=== PATIENT | female | born 1935 | race Caucasian/White ===

== ENCOUNTER 2016-06-07 16:17 | Emergency (ER) | payer MEDICARE, OTHER, SELFPAY ==
[2016-06-07 16:28] VITALS: O2SAT 97
--- NOTE | 2016-06-07 17:16 | ERPHSYRPT ---
- History of Present Illness Time Seen by Provider: 06/07/16 17:07 Source: patient Exam Limitations: no limitations Patient Subjective Stated Complaint: rt hand swelling Triage Nursing Assessment: rt hand swelling for 2 days. fingers swollen with no bruising. radial pulse present. denies injury. limited rom due to swelling. Physician History: Patient complains of pain and swelling in her right hand for 2 days. She denies any injury. Past medical history includes high blood pressure and arthritis Occurred: days ago (2 days ago) Method of Injury: unknown Quality: constant Severity of Pain-Max: moderate Severity of Pain-Current: mild Extremities Pain Location: hand: right, 2nd finger: right, 3rd finger: right, 4th finger: right Modifying Factors: Improves With: nothing Associated Symptoms: none Allergies/Adverse Reactions: No Known Drug Allergies Allergy (Verified 06/07/16 16:28) Home Medications: Citalopram Hydrobromide 20 mg* [ceLEXa 20 MG] 20 mg PO DAILY 04/13/15 [ History] Rosuvastatin Calcium [Crestor] 10 mg PO DAILY 04/13/15 [History] Hx Tetanus, Diphtheria Vaccination/Date Given: Yes Hx Influenza Vaccination/Date Given: Yes Hx Pneumococcal Vaccination/Date Given: Yes Immunizations Up to Date: Yes - Review of Systems Constitutional: No Fever, No Chills Eyes: No Symptoms Ears, Nose, & Throat: No Symptoms Respiratory: No Cough, No Dyspnea Cardiac: No Chest Pain, No Edema, No Syncope Abdominal/Gastrointestinal: No Abdominal Pain, No Nausea, No Vomiting, No Diarrhea Genitourinary Symptoms: No Dysuria Musculoskeletal: Other (pain and right hands especially right second third and fourth fingers) Skin: No Rash Neurological: No Dizziness, No Focal Weakness, No Sensory Changes Psychological: No Symptoms Endocrine: No Symptoms All Other Systems: Reviewed and Negative - Past Medical History Pertinent Past Medical History: Yes Cardiac History: Hypertension - Past Surgical History Past Surgical History: Yes Gastrointestinal: Cholecystectomy - Social History Smoking Status: Never smoker Exposure to second hand smoke: Yes Drug Use: none Patient Lives Alone: No - Nursing Vital Signs Nursing Vital Signs: Initial Vital Signs Temperature 97.8 F Temperature Source Oral Pulse Rate 77 Respiratory Rate 18 Blood Pressure [] 157/80 Pain Intensity 8 - Physical Exam General Appearance: alert Eyes, Ears, Nose, Throat Exam: moist mucous membranes Neck Exam: non-tender, supple Cardiovascular/Respiratory Exam: chest non-tender, normal breath sounds, regular rate/rhythm, no respiratory distress Abdominal Exam: non-tender, No guarding Back Exam: normal inspection, No vertebral tenderness Shoulder Exam: normal inspection, non-tender, no evidence of injury, normal ROM Elbow/Forearm Exam: normal inspection, non-tender, no evidence of injury, normal ROM Wrist Exam: normal inspection, non-tender, no evidence of injury Hand Exam: No normal inspection (edema and tenderness overlying the right second third and fourth proximal interphalangeal joints decreased range of motion to the right second third and fourth finger secondary to pain good capillary refill all fingers sensation intact fingers) Neuro/Tendon Exam: normal sensation, normal motor functions Mental Status Exam: alert, oriented x 3, cooperative Skin Exam: normal color, warm, dry SpO2 Interpretation: normal (97%) SpO2: 97 Oxygen Delivery: Room Air - Course Nursing assessment & vital signs reviewed: Yes - Radiology Exams Right Hand X-ray Interpretation: Interpreted by me, No Fracture, Other (arthritis in pip joints) Ordered Tests: Active Orders 24 hr Category Date Time Status HAND (MINIMUM 3 VIEWS) Stat Exams 06/07/16 17:10 Taken BMP Stat Lab 06/07/16 17:22 Completed CBC W DIFF Stat Lab 06/07/16 17:22 Completed SED RATE [Erythrocyte Sedimentation Rate] Stat Lab 06/07/16 17:24 Completed Uric Acid Stat Lab 06/07/16 17:25 Completed Lab/Rad Data: Laboratory Result Diagrams 06/07/16 17:22 06/07/16 17:22 Laboratory Results 06/07/16 06/07/16 06/07/16 Range/Units 17:25 17:24 17:22 WBC (4.0-10.5) K/mm3 RBC (4.1-5.4) M/mm3 Hgb (12.0-16.0) gm/dl Hct (35-47) % MCV (78-100) fl MCH (26-32) pg MCHC (32-36) g/dl RDW (11.5-14.0) % Plt Count (150-450) K/mm3 MPV (6-9.5) fl Gran % (36.0-66.0) % Lymphocytes % (24.0-44.0) % Monocytes % (0.0-12.0) % Eosinophils % (0.00-5.0) % Basophils % (0.0-0.4) % Basophils # (0-0.4) ESR 17 (0-20) mm/hr Sodium 142 (136-145) mEq/L Potassium 3.7 (3.5-5.1) mEq/L Chloride 104 (98-107) mEq/L Carbon Dioxide 26.3 (21-32) mEq/L Anion Gap 15.6 H (5-15) MEQ/L BUN 12 (9-20) mg/dL Creatinine 1.27 (0.55-1.30) mg/dl Estimated GFR 43 ML/MIN Glucose 109 (70-110) MG/DL Uric Acid 4.6 (2.6-6.0) mg/dL Calcium 8.5 (8.5-10.1) mg/dL 06/07/16 Range/Units 17:22 WBC 5.0 (4.0-10.5) K/mm3 RBC 3.93 L (4.1-5.4) M/mm3 Hgb 12.4 (12.0-16.0) gm/dl Hct 38.4 (35-47) % MCV 97.7 (78-100) fl MCH 31.5 (26-32) pg MCHC 32.3 (32-36) g/dl RDW 15.2 H (11.5-14.0) % Plt Count 119 L (150-450) K/mm3 MPV 10.1 H (6-9.5) fl Gran % 66.6 H (36.0-66.0) % Lymphocytes % 20.9 L (24.0-44.0) % Monocytes % 11.5 (0.0-12.0) % Eosinophils % 0.8 (0.00-5.0) % Basophils % 0.2 (0.0-0.4) % Basophils # 0.01 (0-0.4) ESR (0-20) mm/hr Sodium (136-145) mEq/L Potassium (3.5-5.1) mEq/L Chloride (98-107) mEq/L Carbon Dioxide (21-32) mEq/L Anion Gap (5-15) MEQ/L BUN (9-20) mg/dL Creatinine (0.55-1.30) mg/dl Estimated GFR ML/MIN Glucose (70-110) MG/DL Uric Acid (2.6-6.0) mg/dL Calcium (8.5-10.1) mg/dL - Progress Progress: improved Progress Note: 06/07/16 18:08 Patient with swelling at all the proximal interphalangeal joints of her fingers. Patient's fingers are not hot. Patient with normal white count and sedimentation rate. Uric acid level was normal. Will write for [place] for pain. Have patient rest and elevate her right hand with cold packs. - Departure Time of Disposition: 18:09 Departure Disposition: Home Clinical Impression: Right hand pain, Arthritis Condition: Fair Critical Care Time: No Additional Instructions: Return home. Cold packs to right hand 24-48 hours elevate your right hand 24-48 hours. [place] 5/325 #15 one orally every 4-6 hours as needed for pain. Follow-up with Dr. Fletcher. Return for acute distress or for severe symptoms. Prescriptions: Hydrocodone/Acetaminophen [[place] 5-325 Tablet] 1 tab PO Q4-6HPRN PRN #15 tablet PRN Reason: Pain
[2016-06-07 17:30] LABS: BASOPHIL % 0.2 % (0.0-0.4); Eosinophil % 0.8 % (0.00-5.0); Granulocytes % 66.6 % (36.0-66.0); Lymphocytes % 20.9 % (24.0-44.0); Mean Cell Volume 97.7 fl (78-100); Mean Platelet Volume 10.1 fl (6-9.5); Monocytes % 11.5 % (0.0-12.0); Platelet Count 119 K/mm3 (150-450); Red Blood Count 3.93 M/mm3 (4.1-5.4); Red Cell Distribution Width 15.2 % (11.5-14.0)
[2016-06-07 17:33] LABS: Mean Corpuscular Hemoglobin 31.5 pg (26-32)
[2016-06-07 17:40] LABS: ANION GAP 15.6 MEQ/L (5-15); Carbon Dioxide 26.3 mEq/L (21-32); Potassium 3.7 mEq/L (3.5-5.1)
[2016-06-07 18:19] VITALS: BP 128/70; PULSE 70
--- NOTE | 2016-06-08 08:29 | XRAY ---
Indication: Pain and swelling. No known injury. Comparison: None 3 views of the right hand demonstrates mild osteopenia, advanced degenerative changes of all IP joints with soft tissue swelling, mild degenerative changes of all MCP joints, moderate degenerative changes at the base of the first metacarpal, radiocarpal degenerative joint space narrowing, and distal forearm vascular calcifications. No other bony, articular, or soft tissue abnormalities.
== END 2016-06-07 18:18 | disposition home or self-care (01) ==
LOC: ED 16:17
DX: M79.641 Pain in right hand (principal); M19.041 Primary osteoarthritis, right hand; I10 Essential (primary) hypertension
CPT/HCPCS: 36415; 73130; 80048; 84550; 85025; 85652; 99284

== ENCOUNTER 2017-12-08 04:33 | Emergency (ER) | payer MEDICARE, OTHER ==
[2017-12-08] MEDS ORDERED: ANTIVERT 25 MG PO ONE (04:58)
[2017-12-08] MEDS ORDERED: Sodium Chloride 0.9% 1000 ML 1,000 ML IV SCH (05:00)
--- NOTE | 2017-12-08 05:15 | ERPHSYRPT ---
- History of Present Illness Time Seen by Provider: 12/08/17 05:00 Source: patient Exam Limitations: clinical condition Patient Subjective Stated Complaint: PT STATES SHE WAS SITTING IN CHAIR AND GOT UP AND STARTED HAVING DIFFICULTY AMBULATING D/T DIZZINESS; PT STATES S/S HAVE BEEN ONGOING FOR APPROX 1 HOUR; ALSO STATES SHE HAS SIMILAR S/S INTERMITTENTLY BUT HAS NOT DISCUSSED WITH HER FAMILY PHYS; PT ALSO CO HEADACHE AND BACK PAIN. Triage Nursing Assessment: PT A&O X3; SKIN P, W, & D; NO OBVIOUS DISTRESS NOTED ; ASSISTED TO COT PER ER STAFF AND EMS; FAMILY AT BEDSIDE. Physician History: PATIENT WITH A HISTORY OF HYPERTENSION COMPLAINS OF DIZZINESS ASSOCIATED WITH FRONTAL HEADACHE OVER THE PAST 2 HOURS. DENIES BLURRED VISION, SLURRED SPEECH. EXACERBATION UPON MOTION OF HEAD. DENIES NUMBNESS, TINGLING IN EXTEMITIES Timing/Duration: today Severity: moderate Baseline/Normal Cognition: alert oriented x 3 Current Cognition: alert oriented x 3 Baseline Gait: walks w/o assistance Associated Symptoms: headache Allergies/Adverse Reactions: No Known Drug Allergies Allergy (Verified 12/08/17 04:54) Home Medications: Citalopram Hydrobromide 20 mg* [ceLEXa 20 MG] 20 mg PO DAILY 04/13/15 [ History] Rosuvastatin Calcium [Crestor] 10 mg PO DAILY 04/13/15 [History] Hx Tetanus, Diphtheria Vaccination/Date Given: Yes Hx Influenza Vaccination/Date Given: Yes Hx Pneumococcal Vaccination/Date Given: Yes Immunizations Up to Date: Yes - Review of Systems Constitutional: No Fever, No Chills Eyes: No Symptoms Ears, Nose, & Throat: No Symptoms Respiratory: No Cough, No Dyspnea Cardiac: No Symptoms, No Chest Pain, No Edema, No Syncope Abdominal/Gastrointestinal: No Symptoms, No Abdominal Pain, No Nausea, No Vomiting, No Diarrhea Genitourinary Symptoms: No Symptoms, No Dysuria Musculoskeletal: No Back Pain, No Neck Pain Skin: No Rash Neurological: Headache, Vertigo, No Dizziness, No Focal Weakness, No Sensory Changes Psychological: No Symptoms Endocrine: No Symptoms All Other Systems: Reviewed and Negative - Past Medical History Pertinent Past Medical History: Yes Cardiac History: Hypertension - Past Surgical History Past Surgical History: Yes Gastrointestinal: Cholecystectomy - Social History Smoking Status: Never smoker Exposure to second hand smoke: No Drug Use: none Patient Lives Alone: No - Female History Hx Last Menstrual Period: POSTMENOPAUSAL - Nursing Vital Signs Nursing Vital Signs: Initial Vital Signs Temperature 97.4 F 12/08/17 04:44 Pulse Rate 74 12/08/17 04:44 Respiratory Rate 18 12/08/17 04:44 Blood Pressure 148/68 12/08/17 04:44 O2 Sat by Pulse Oximetry 96 12/08/17 04:44 Pain Scale Pain Intensity 8 - [place] Coma Scale Best Eye Response ([place]): (4) open spontaneously Best Verbal Response ([place]): (5) oriented Best Motor Response ([place]): (6) obeys commands [place] Total: 15 - Physical Exam General Appearance: no apparent distress Eye Exam: bilateral eye: normal inspection, PERRL, EOMI Ears, Nose, Throat Exam: normal ENT inspection, other (NO PERCUSSION TENDERNESS OVER SINUSES) Neck Exam: normal inspection, non-tender Respiratory: normal breath sounds Cardiovascular: regular rate/rhythm Gastrointestinal: soft, normal bowel sounds Back Exam: normal inspection Extremity Exam: normal inspection Peripheral Pulses: carotid (R): 1+, carotid (L): 1+, femoral (R): 1+, femoral (L ): 1+, dorsalis-pedis (R): 1+ 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, 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 Exam: normal hearing, normal speech, PERRL Coordination/Gait: normal finger to nose, normal gait DTR: bicep (R): 1+, bicep (L): 1+, tricep (R): 1+, tricep (L): 1+, knee (R): 1+ , knee (L): 1+, ankle (R): 1+, ankle (L): 1+ Skin Exam: normal color SpO2 Interpretation: normal SpO2: 96 Oxygen Delivery: Room Air - Course EKG Interpreted by Me: RATE, NORMAL AXIS - CT Exams Head CT Interpretation: No/Intracranial Hemorrhag (THERE IS OPACIFICATION OF RIGHT MASTOID AIR CELLS) Ordered Tests: Active Orders 24 hr Category Date Time Status 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 Care 12/08/17 04:59 Active EKG-ER Only STAT Care 12/08/17 04:58 Active Orthostatic Vital Signs STAT Care 12/08/17 04:58 Active HEAD WITHOUT CONTRAST [CT] Stat Exams 12/08/17 05:05 Taken BMP Stat Lab 12/08/17 05:47 Completed CBC W DIFF Stat Lab 12/08/17 05:47 Completed CULTURE,URINE Stat Lab 12/08/17 05:30 Received MAGNESIUM Stat Lab 12/08/17 05:47 Completed UA W/ MICROSCOPIC Stat Lab 12/08/17 05:30 Completed Medication Summary Generic Name Dose Route Start Last Admin Trade Name Martha PRN Reason Stop Dose Admin Sodium Chloride 1,000 mls @ 200 mls/hr 12/08/17 05:00 12/08/17 05:45 Sodium Chloride 0.9% 1000 Ml IV 01/07/18 04:59 200 mls/hr .Q5H SREE Administration Discontinued Medications Generic Name Dose Route Start Last Admin Trade Name Freq PRN Reason Stop Dose Admin Ceftriaxone Sodium/Dextrose 1 g in 50 mls @ 100 mls/hr 12/08/17 05:55 06:06 Rocephin 1 Gm-D5w 50 Ml Bag IV 12/08/17 06:24 100 ml/hr STAT STA 100 mls/hr Administration Ceftriaxone Sodium/Dextrose Confirm 12/08/17 06:02 Rocephin 1 Gm-D5w 50 Ml Bag Administered 12/08/17 06:03 Dose 1 g in 50 mls @ ud IV .STK-MED ONE Meclizine HCl 25 mg 12/08/17 04:58 12/08/17 05:45 Antivert 25 Mg PO 12/08/17 04:59 25 mg STAT ONE Administration Meclizine HCl Confirm 12/08/17 05:43 Antivert 25 Mg Administered 12/08/17 05:44 Dose 25 mg .ROUTE .STK-MED ONE Lab/Rad Data: Laboratory Result Diagrams 12/08/17 05:47 12/08/17 05:47 Laboratory Results 12/08/17 12/08/17 12/08/17 Range/Units 05:47 05:47 05:47 WBC 5.0 (4.0-10.5) K/mm3 RBC 3.70 L (4.1-5.4) M/mm3 Hgb 12.5 (12.0-16.0) gm/dl Hct 37.8 (35-47) % MCV 102.2 H (78-100) fl MCH 33.7 H (26-32) pg MCHC 33.1 (32-36) g/dl RDW 14.8 H (11.5-14.0) % Plt Count 163 (150-450) K/mm3 MPV 9.3 (6-9.5) fl Gran % 67.1 H (36.0-66.0) % Eos # (Auto) 0.08 (0-0.5) Absolute Lymphs (auto) 1.08 (1.0-4.6) Absolute Monos (auto) 0.45 (0.0-1.3) Lymphocytes % 21.8 L (24.0-44.0) % Monocytes % 9.1 (0.0-12.0) % Eosinophils % 1.6 (0.00-5.0) % Basophils % 0.4 (0.0-0.4) % Absolute Granulocytes 3.33 (1.4-6.9) Basophils # 0.02 (0-0.4) Sodium 138 (137-145) mmol/L Potassium 4.0 (3.5-5.1) mmol/L Chloride 104 (98-107) mmol/L Carbon Dioxide 26 (22-30) mmol/L Anion Gap 11.0 (5-15) MEQ/L BUN 13 (7-17) mg/dL Creatinine 0.92 (0.52-1.04) mg/dL Estimated GFR > 60.0 ML/MIN Glucose 123 H (74-106) mg/dL Calcium 8.8 (8.4-10.2) mg/dL Magnesium 1.9 (1.6-2.3) mg/dL Ur Collection Type Urine Color (YELLOW) Urine Appearance (CLEAR) Urine pH (5-6) Ur Specific [place] (1.005-1.025) Urine Protein (Negative) Urine Ketones (NEGATIVE) Urine Blood (0-5) Ubaldo/ul Urine Nitrite (NEGATIVE) Urine Bilirubin (NEGATIVE) Urine Urobilinogen (0-1) mg/dL Ur Leukocyte Esterase (NEGATIVE) Urine Microscopic RBC (0-2) /HPF Urine Microscopic WBC (0-5) /HPF Ur Epithelial Cells (FEW) /HPF Urine Bacteria (NEGATIVE) /HPF Urine Mucus (NEGATIVE) /HPF Urine Culture Reflexed (NO) Urine Glucose (NEGATIVE) mg/dL 12/08/17 Range/Units 05:30 WBC (4.0-10.5) K/mm3 RBC (4.1-5.4) M/mm3 Hgb (12.0-16.0) gm/dl Hct (35-47) % MCV (78-100) fl MCH (26-32) pg MCHC (32-36) g/dl RDW (11.5-14.0) % Plt Count (150-450) K/mm3 MPV (6-9.5) fl Gran % (36.0-66.0) % Eos # (Auto) (0-0.5) Absolute Lymphs (auto) (1.0-4.6) Absolute Monos (auto) (0.0-1.3) Lymphocytes % (24.0-44.0) % Monocytes % (0.0-12.0) % Eosinophils % (0.00-5.0) % Basophils % (0.0-0.4) % Absolute Granulocytes (1.4-6.9) Basophils # (0-0.4) Sodium (137-145) mmol/L Potassium (3.5-5.1) mmol/L Chloride (98-107) mmol/L Carbon Dioxide (22-30) mmol/L Anion Gap (5-15) MEQ/L BUN (7-17) mg/dL Creatinine (0.52-1.04) mg/dL Estimated GFR ML/MIN Glucose (74-106) mg/dL Calcium (8.4-10.2) mg/dL Magnesium (1.6-2.3) mg/dL Ur Collection Type CLEAN CATCH Urine Color YELLOW (YELLOW) Urine Appearance CLEAR (CLEAR) Urine pH 8.0 (5-6) Ur Specific [place] 1.005 (1.005-1.025) Urine Protein NEGATIVE (Negative) Urine Ketones NEGATIVE (NEGATIVE) Urine Blood 50 (0-5) Ubaldo/ul Urine Nitrite NEGATIVE (NEGATIVE) Urine Bilirubin NEGATIVE (NEGATIVE) Urine Urobilinogen NORMAL (0-1) mg/dL Ur Leukocyte Esterase 1+ (NEGATIVE) Urine Microscopic RBC 2-5 (0-2) /HPF Urine Microscopic WBC 5-10 (0-5) /HPF Ur Epithelial Cells FEW (FEW) /HPF Urine Bacteria FEW (NEGATIVE) /HPF Urine Mucus SLIGHT (NEGATIVE) /HPF Urine Culture Reflexed YES (NO) Urine Glucose NEGATIVE (NEGATIVE) mg/dL - Progress Progress: pain not gone completely Progress Note: 12/08/17 05:56 IV NORNAL SALINE 200ML/HR, TYLENOL 650MG, AND ANTIVERT 25MG ORALLY, ROCEPHIN 1GM IVPB FOR UTI Counseled pt/family regarding: lab results, diagnosis, need for follow-up - Departure Time of Disposition: 07:00 Departure Disposition: Home Clinical Impression: ACUTE LABYRINTHITIS, URINARY TRACT INFECTION Condition: Stable Critical Care Time: No Referrals: KATHERINE SANDERS [Primary Care Provider] - Additional Instructions: BEGIN ANTIVERT 25MG EVERY 8 HOURS FOR DIZZINESS NEEDED, AND ANTIBIOTIC LEVAQUIN 500MG DAILY FOR 10 DAYS. DRINK PLENTY OF FLUIDS. Prescriptions: Meclizine HCl 25 mg [Antivert 25 mg] 25 mg PO Q8H PRN PRN #20 tablet PRN Reason: Dizziness Levofloxacin [Levaquin] 500 mg PO DAILY #10 tablet
[2017-12-08 05:37] LABS: Appearance CLEAR (CLEAR); Bilirubin NEGATIVE (NEGATIVE); Blood 50 Ery/ul (0-5); Glucose NEGATIVE (NEGATIVE); Ketones NEGATIVE (NEGATIVE); Leukocyte Esterase 1+ (NEGATIVE); Mucus SLIGHT /HPF (NEGATIVE); Nitrite NEGATIVE (NEGATIVE); Protein,Urine Dip NEGATIVE (Negative); Specific Gravity 1.005 (1.005-1.025); Urobilinogen NORMAL mg/dL (0-1)
[2017-12-08 05:38] LABS: Bacteria FEW /HPF (NEGATIVE); Epithelial Cells FEW /HPF (FEW)
[2017-12-08] MEDS ORDERED: Sodium Chloride 0.9% 1000 ML 1,000 ML ONE (05:43)
[2017-12-08] MEDS ORDERED: ANTIVERT 25 MG ONE (05:43)
[2017-12-08 05:49] LABS: BASOPHIL % 0.4 % (0.0-0.4); Basophil (Absolute #) 0.02 (0-0.4); Eosinophil % 1.6 % (0.00-5.0); Eosinophil (Absolute #) 0.08 (0-0.5); Granulocyte Absolute (ANC) 3.33 (1.4-6.9); Granulocytes % 67.1 % (36.0-66.0); Hematocrit 37.8 % (35-47); Hemoglobin 12.5 gm/dl (12.0-16.0); Lymphocyte (Absolute #) 1.08 (1.0-4.6); Lymphocytes % 21.8 % (24.0-44.0); Mean Cell Volume 102.2 fl (78-100); Mean Corpuscular Hgb Concent. 33.1 g/dl (32-36); Mean Platelet Volume 9.3 fl (6-9.5); Monocyte (Absolute #) 0.45 (0.0-1.3); Monocytes % 9.1 % (0.0-12.0); Platelet Count 163 K/mm3 (150-450); Red Cell Distribution Width 14.8 % (11.5-14.0)
[2017-12-08 05:50] LABS: Mean Corpuscular Hemoglobin 33.7 pg (26-32)
[2017-12-08] MEDS ORDERED: ROCEPHIN 1 Gm-D5w 50 ml Bag** 1 G/50 ML IVPB IV STA (05:55)
[2017-12-08] MEDS ORDERED: ROCEPHIN 1 Gm-D5w 50 ml Bag** 1 G/50 ML IVPB IV ONE (06:02)
[2017-12-08 06:16] LABS: BLOOD UREA NITROGEN 13 mg/dL (7-17); CHLORIDE 104 mmol/L (98-107); Calcium 8.8 mg/dL (8.4-10.2); Carbon Dioxide 26 mmol/L (22-30); Creatinine 1 0.92 mg/dL (0.52-1.04); Glucose 123 mg/dL (74-106); SODIUM 138 mmol/L (137-145)
[2017-12-08 06:53] VITALS: BP 160/85; PULSE 73; O2SAT 98
--- NOTE | 2017-12-08 09:01 | XRAY ---
Indication: Headache and dizziness. No known injury. Multiple contiguous axial images obtained through the head without contrast. Comparison: None Age-appropriate global atrophy and minimal periventricular degenerative micro-ischemia bilaterally. No acute intracranial hemorrhage, abnormal extra-axial fluid collection, or mass effect. Fourth ventricle is midline without hydrocephalus. Bony calvarium intact. 1.1 cm right maxillary sinus polyp/retention cyst. Remaining visualized paranasal sinuses are clear. Complete opacification of the right mastoid air cells. Impression: 1. Nonacute senile brain. 2. Incidental right maxillary sinus polyp/retention cyst. 3. Complete opacification of the right mastoid air cells presumed inflammatory. Comment: Preliminary interpretation was made by [facility]. No critical discrepancy. CT DI 70.21
== END 2017-12-08 07:27 | disposition home or self-care (01) ==
LOC: ED 04:33
DX: H83.09 Labyrinthitis, unspecified ear (principal); N39.0 Urinary tract infection, site not specified; R51 Headache; Z79.899 Other long term (current) drug therapy
CPT/HCPCS: 36415; 70450; 80048; 81001; 83735; 85025; 87086; 93005; 93041; 96360; 96365; 99284; J0696; A9270-GY

== ENCOUNTER 2017-12-11 11:50 | Inpatient (IN) | payer MEDICARE, OTHER ==
--- NOTE | 2017-12-11 13:09 | XRAY ---
Exam: Two-view chest from 12/11/2017. Comparison: Two-view chest from 04/05/2016. Indication: Shortness of breath, weakness, "just don't feel good". Findings: Upright PA and lateral chest films are submitted for evaluation. The transverse heart size is borderline enlarged with a prominent left ventricular contour representing no change. A calcified, mildly tortuous descending thoracic aorta is seen. The kristyn and mediastinal structures appear unremarkable. Some minimal vertically oriented linear scarring or atelectasis is seen at the peripheral right upper lung field and lateral right lung base. I also note minimal obliquely oriented linear scarring or plate atelectasis within the peripheral left lower lung field. The remainder of the lung cenra appears clear. No air space infiltrates, vascular congestion, pneumothorax, or pleural fluid is seen. Minimal biapical pleural thickening is seen. There is mild hyperinflation of the lungs. The bones are significantly demineralized. There is evidence of prior kyphoplasty at T7 and T8. There is minimal anterior wedging of T9 representing no change. There is a moderate compression fracture deformity of T6 which is new from 01/03/2017. Correlate clinically. There is moderate to marked dorsal kyphosis centered at T8-T9. Mild lower thoracic vertebral endplate spurs are seen. A mild dextroscoliosis is again seen within the upper lumbar spine. Impression: 1. Borderline cardiomegaly with left ventricular prominence without evidence of CHF or pulmonary edema. 2. Hyperinflated lungs consistent with an element of COPD. 3. No air space infiltrates are seen to suggest pneumonia. I do note some minimal scattered bilateral linear scarring or atelectasis, as discussed above. 4. Compared to 01/03/2017, there is a new moderate compression fracture deformity of T6. Otherwise, the remainder of the skeletal findings appears unchanged, as discussed above.
[2017-12-11] MEDS ORDERED: Zovirax INJ IV SCH (13:15)
[2017-12-11 13:28] LABS: BASOPHIL % 0.5 % (0.0-0.4); Basophil (Absolute #) 0.02 (0-0.4); Eosinophil % 0.3 % (0.00-5.0); Eosinophil (Absolute #) 0.01 (0-0.5); Granulocyte Absolute (ANC) 2.55 (1.4-6.9); Granulocytes % 68.9 % (36.0-66.0); Hematocrit 44.6 % (35-47); Hemoglobin 15.1 gm/dl (12.0-16.0); Lymphocytes % 16.2 % (24.0-44.0); Mean Cell Volume 99.3 fl (78-100); Mean Corpuscular Hemoglobin 33.6 pg (26-32); Mean Corpuscular Hgb Concent. 33.9 g/dl (32-36); Monocyte (Absolute #) 0.52 (0.0-1.3); Monocytes % 14.1 % (0.0-12.0); Platelet Count 122 K/mm3 (150-450); Red Blood Count 4.49 M/mm3 (4.1-5.4); Red Cell Distribution Width 14.6 % (11.5-14.0); White Blood Count 3.7 K/mm3 (4.0-10.5)
[2017-12-11 14:31] LABS: ANION GAP 15.2 MEQ/L (5-15); BILIRUBIN,TOTAL 0.5 mg/dL (0.2-1.3); Calcium 9.5 mg/dL (8.4-10.2); Creatinine 1 1.35 mg/dL (0.52-1.04); Total Protein 7.3 g/dL (6.3-8.2)
[2017-12-11] MEDS: Sodium Chloride 0.9% 1000 ML 1,000 ML IV SCH (15:09)
[2017-12-11] MEDS: SODIUM CHLORIDE 0.9% IV SCH ×2 (15:10→22:41)
[2017-12-11] MEDS: ZOVIRAX IV SCH ×2 (15:10→22:41)
[2017-12-11] MEDS: ROCEPHIN 1 Gm-D5w 50 ml Bag** 1 G/50 ML IVPB IV SCH (16:10)
[2017-12-11] MEDS: ANTIVERT 25 MG PO SCH ×2 (16:11→22:41)
[2017-12-11] MEDS ORDERED: NON-FORMULARY ITEM (Donepezil Hcl [Donepezil Hcl] 5 MG) PO SCH (22:00)
[2017-12-11] MEDS: Aricept 10 MG PO SCH (22:40)
[2017-12-11] MEDS: ZOCOR 20MG PO SCH (22:41)
[2017-12-11 23:52] LABS: Appearance CLOUDY (CLEAR); Bilirubin NEGATIVE (NEGATIVE); Blood MODERATE Ery/ul (0-5); Glucose NEGATIVE (NEGATIVE); Ketones TRACE (NEGATIVE); Leukocyte Esterase SMALL (NEGATIVE); Nitrite NEGATIVE (NEGATIVE); Protein,Urine Dip 30 (Negative); Specific Gravity 1.025 (1.005-1.025); Urobilinogen NEGATIVE mg/dL (0-1)
[2017-12-12] MEDS: Sodium Chloride 0.9% 1000 ML 1,000 ML IV SCH ×2 (03:53→16:48)
[2017-12-12] MEDS: TYLENOL 325 MG PO PRN ×2 (08:34→21:24)
[2017-12-12] MEDS: ZOLOFT 50 MG TABLET PO SCH (09:37)
[2017-12-12] MEDS: hydroDIURIL 25 MG PO SCH (09:38)
[2017-12-12] MEDS: ROCEPHIN 1 Gm-D5w 50 ml Bag** 1 G/50 ML IVPB IV SCH (09:38)
[2017-12-12] MEDS: NORVASC 5 MG PO SCH (09:38)
[2017-12-12] MEDS: ANTIVERT 25 MG PO SCH ×3 (09:38→21:24)
[2017-12-12] MEDS ORDERED: HYDROCHLOROTHIAZIDE PO SCH (10:00)
[2017-12-12] MEDS ORDERED: DIOVAN 80 MG PO SCH (10:00)
[2017-12-12] MEDS ORDERED: VALSARTAN PO SCH (10:00)
[2017-12-12] MEDS ORDERED: NON-FORMULARY ITEM (Sertraline Hcl [Sertraline Hcl] 25 MG) PO SCH (10:00)
[2017-12-12] MEDS ORDERED: NON-FORMULARY ITEM (Rosuvastatin Calcium [Crestor] 10 MG) PO SCH (10:00)
[2017-12-12] MEDS: ZOVIRAX IV SCH ×2 (10:48→21:24)
[2017-12-12] MEDS: SODIUM CHLORIDE 0.9% IV SCH ×2 (10:48→21:24)
--- NOTE | 2017-12-12 11:51 | PCM.NOTE ---
Date and Time: 12/12/17 1150 Subjective Assessment: doing ok - Review of Systems Constitutional: No Fever, No Chills Eyes: No Symptoms Ears, Nose, & Throat: No Symptoms Respiratory: No Cough, No Short Of Breath Cardiac: No Chest Pain, No Edema, No Syncope Abdominal/Gastrointestinal: No Abdominal Pain, No Nausea, No Vomiting, No Diarrhea Genitourinary Symptoms: No Dysuria Musculoskeletal: No Back Pain, No Neck Pain Skin: No Rash Neurological: No Dizziness, No Focal Weakness, No Sensory Changes Psychological: No Symptoms Endocrine: No Symptoms Hematologic/Lymphatic: No Symptoms Immunological/Allergic: No Symptoms Objective Exam General Appearance: no apparent distress, alert Neurologic Exam: alert, oriented x 3, cooperative, normal mood/affect, nml cerebellar function, sensation nml, No motor deficits Skin Exam: normal color, warm, dry Eye Exam: PERRL, EOMI, eyes nml inspection Ears, Nose, Throat Exam: normal ENT inspection, pharynx normal, moist mucous membranes Neck Exam: normal inspection, non-tender, supple, full range of motion Respiratory Exam: normal breath sounds, lungs clear, No respiratory distress Cardiovascular Exam: regular rate/rhythm, normal heart sounds Gastrointestinal/Abdomen Exam: soft, No tenderness, No mass Extremity Exam: normal inspection, normal range of motion Back Exam: normal inspection, normal range of motion, No CVA tenderness, No vertebral tenderness Pelvic Exam: deferred Rectal Exam: deferred OBJECTIVE DATA Vital Signs: Vital Signs - 24 hr Temp Pulse Resp BP Pulse Ox 12/12/17 11:05 98 F 82 20 125/64 96 12/12/17 07:10 98.1 F 90 20 113/65 96 12/12/17 04:00 98.0 F 71 16 135/61 93 L 12/11/17 23:41 98.0 F 79 20 144/68 95 12/11/17 20:00 99.0 F 79 18 130/60 95 12/11/17 16:50 98.7 F 82 16 143/82 94 L 12/11/17 16:00 98.7 F 82 16 143/82 94 L Pain Assessment - Last Documented Pain Intensity 8 Pain Scale Used 0-10 Pain Scale Intake and Output: Intake & Output 12/09/17 12/10/17 12/11/17 12/12/17 11:59 11:59 11:59 11:59 Intake Total 1804 Output Total 500 Balance 1304 Weight 55.7 kg Lab Results: Lab Results-Last 24 Hours 12/11/17 12/11/17 12/11/17 Range/Units 13:15 13:15 23:30 WBC 3.7 L (4.0-10.5) K/mm3 RBC 4.49 (4.1-5.4) M/mm3 Hgb 15.1 (12.0-16.0) gm/dl Hct 44.6 (35-47) % MCV 99.3 (78-100) fl MCH 33.6 H (26-32) pg MCHC 33.9 (32-36) g/dl RDW 14.6 H (11.5-14.0) % Plt Count 122 L (150-450) K/mm3 MPV 10.0 H (6-9.5) fl Gran % 68.9 H (36.0-66.0) % Eos # (Auto) 0.01 (0-0.5) Absolute Lymphs (auto) 0.60 L (1.0-4.6) Absolute Monos (auto) 0.52 (0.0-1.3) Lymphocytes % 16.2 L (24.0-44.0) % Monocytes % 14.1 H (0.0-12.0) % Eosinophils % 0.3 (0.00-5.0) % Basophils % 0.5 (0.0-0.4) % Absolute Granulocytes 2.55 (1.4-6.9) Basophils # 0.02 (0-0.4) Sodium 137 (137-145) mmol/L Potassium 4.0 (3.5-5.1) mmol/L Chloride 102 (98-107) mmol/L Carbon Dioxide 24 (22-30) mmol/L Anion Gap 15.2 H (5-15) MEQ/L BUN 31 H (7-17) mg/dL Creatinine 1.35 H (0.52-1.04) mg/dL Estimated GFR 40.1 ML/MIN Glucose 115 H (74-106) mg/dL Calcium 9.5 (8.4-10.2) mg/dL Total Bilirubin 0.50 (0.2-1.3) mg/dL AST 32 (14-36) U/L ALT 16 (0-35) U/L Alkaline Phosphatase 64 (38-126) U/L NT-Pro-B Natriuret Pep 8610 H (0-1800) pg/mL Serum Total Protein 7.3 (6.3-8.2) g/dL Albumin 4.0 (3.5-5.0) g/dL Urine Color YELLOW (YELLOW) Urine Appearance CLOUDY (CLEAR) Urine pH 5.0 (5-6) Ur Specific [place] 1.025 (1.005-1.025) Urine Protein 30 (Negative) Urine Ketones TRACE (NEGATIVE) Urine Blood MODERATE (0-5) Ubaldo/ul Urine Nitrite NEGATIVE (NEGATIVE) Urine Bilirubin NEGATIVE (NEGATIVE) Urine Urobilinogen NEGATIVE (0-1) mg/dL Ur Leukocyte Esterase SMALL (NEGATIVE) Urine WBC (Auto) 6-10 (0-5) /HPF Urine RBC (Auto) 6-10 (0-2) /HPF U Hyaline Cast (Auto) 3-5 (0-2) /LPF U Epithel Cells (Auto) MODERATE (FEW) /HPF Urine Bacteria (Auto) RARE (NEGATIVE) /HPF Unidentified Crystals 2-5 (NEGATIVE) /HPF Other Casts (Auto) NEGATIVE (NEGATIVE) /LPF Urine Mucus (Auto) SLIGHT (NEGATIVE) /HPF Urine Glucose NEGATIVE (NEGATIVE) mg/dL Radiology Exams: Radiology Procedures Category Date Time Status CHEST 2 VIEWS (PA AND LAT) Stat Exams 12/11/17 12:50 Completed Assessment/Plan (1) UTI (urinary tract infection) Current Visit: Yes Status: Acute Onset Date: ~12/11/17 Qualifiers: Urinary tract infection type: acute pyelonephritis Qualified Code(s): N10 - Acute pyelonephritis Code(s): N39.0 - URINARY TRACT INFECTION, SITE NOT SPECIFIED (2) Failure of outpatient treatment Current Visit: Yes Status: Acute Onset Date: ~12/11/17 Code(s): Z78.9 - OTHER SPECIFIED HEALTH STATUS (3) Weakness Current Visit: Yes Status: Acute Onset Date: ~12/11/17 Code(s): R53.1 - WEAKNESS (4) Shingles (herpes zoster) polyneuropathy Current Visit: Yes Status: Acute Code(s): B02.23 - POSTHERPETIC POLYNEUROPATHY
[2017-12-12] MEDS: Lomotil PO PRN (16:48)
[2017-12-12] MEDS: ZOCOR 20MG PO SCH (21:24)
[2017-12-12] MEDS: Aricept 10 MG PO SCH (21:24)
[2017-12-13] MEDS: Sodium Chloride 0.9% 1000 ML 1,000 ML IV SCH ×2 (05:05→16:31)
--- NOTE | 2017-12-13 06:41 | PCM.NOTE ---
Date and Time: 12/13/17 0640 Subjective Assessment: doing ok - Review of Systems Constitutional: No Fever, No Chills Eyes: No Symptoms Ears, Nose, & Throat: No Symptoms Respiratory: No Cough, No Short Of Breath Cardiac: No Chest Pain, No Edema, No Syncope Abdominal/Gastrointestinal: No Abdominal Pain, No Nausea, No Vomiting, No Diarrhea Genitourinary Symptoms: No Dysuria Musculoskeletal: No Back Pain, No Neck Pain Skin: Rash (on left lower back) Neurological: No Dizziness, No Focal Weakness, No Sensory Changes Psychological: No Symptoms Endocrine: No Symptoms Hematologic/Lymphatic: No Symptoms Immunological/Allergic: No Symptoms Objective Exam General Appearance: no apparent distress, alert Neurologic Exam: alert, oriented x 3, cooperative, normal mood/affect, nml cerebellar function, sensation nml, No motor deficits Skin Exam: normal color, warm, dry Eye Exam: PERRL, EOMI, eyes nml inspection Ears, Nose, Throat Exam: normal ENT inspection, pharynx normal, moist mucous membranes Neck Exam: normal inspection, non-tender, supple, full range of motion Respiratory Exam: normal breath sounds, lungs clear, No respiratory distress Cardiovascular Exam: regular rate/rhythm, normal heart sounds Gastrointestinal/Abdomen Exam: soft, No tenderness, No mass Extremity Exam: normal inspection, normal range of motion Back Exam: normal inspection, normal range of motion, rash, No CVA tenderness, No vertebral tenderness Pelvic Exam: deferred Rectal Exam: deferred OBJECTIVE DATA Vital Signs: Vital Signs - 24 hr Temp Pulse Resp BP Pulse Ox 12/13/17 04:00 98.5 F 99 H 18 161/83 94 L 12/12/17 23:15 97.9 F 64 19 131/67 95 12/12/17 19:21 98.3 F 72 16 126/62 96 12/12/17 16:39 98 F 68 20 118/57 96 12/12/17 11:05 98 F 82 20 125/64 96 12/12/17 07:10 98.1 F 90 20 113/65 96 Pain Assessment - Last Documented Pain Intensity 8 Pain Scale Used 0-10 Pain Scale Intake and Output: Intake & Output 12/10/17 12/11/17 12/12/17 12/13/17 11:59 11:59 11:59 11:59 Intake Total 1804 3350 Output Total 500 1100 Balance 1304 2250 Weight 55.7 kg Radiology Exams: Radiology Procedures Category Date Time Status CHEST 2 VIEWS (PA AND LAT) Stat Exams 12/11/17 12:50 Completed Assessment/Plan (1) Shingles (herpes zoster) polyneuropathy Current Visit: Yes Status: Acute Code(s): B02.23 - POSTHERPETIC POLYNEUROPATHY (2) UTI (urinary tract infection) Current Visit: Yes Status: Acute Onset Date: ~12/11/17 Qualifiers: Urinary tract infection type: acute pyelonephritis Qualified Code(s): N10 - Acute pyelonephritis Code(s): N39.0 - URINARY TRACT INFECTION, SITE NOT SPECIFIED (3) Failure of outpatient treatment Current Visit: Yes Status: Acute Onset Date: ~12/11/17 Code(s): Z78.9 - OTHER SPECIFIED HEALTH STATUS (4) Weakness Current Visit: Yes Status: Resolved Onset Date: ~12/11/17 Code(s): R53.1 - WEAKNESS
[2017-12-13] MEDS: ZOLOFT 50 MG TABLET PO SCH (09:11)
[2017-12-13] MEDS: ANTIVERT 25 MG PO SCH ×3 (09:11→21:42)
[2017-12-13] MEDS: DIOVAN 80 MG PO SCH (09:12)
[2017-12-13] MEDS: hydroDIURIL 25 MG PO SCH (09:12)
[2017-12-13] MEDS: NORVASC 5 MG PO SCH (09:13)
[2017-12-13] MEDS: SODIUM CHLORIDE 0.9% IV SCH ×2 (09:17→21:42)
[2017-12-13] MEDS: ZOVIRAX IV SCH ×2 (09:17→21:42)
[2017-12-13] MEDS ORDERED: Levofloxacin 500 MG Tablet PO SCH (10:00)
[2017-12-13] MEDS: ROCEPHIN 1 Gm-D5w 50 ml Bag** 1 G/50 ML IVPB IV SCH (10:54)
[2017-12-13] MEDS: TYLENOL 325 MG PO PRN (12:41)
[2017-12-13] MEDS: Lomotil PO PRN (12:41)
[2017-12-13] MEDS: PERCOCET TABLET 5/325MG PO PRN ×2 (15:49→21:43)
[2017-12-13] MEDS: ZOCOR 20MG PO SCH (21:42)
[2017-12-13] MEDS: Aricept 10 MG PO SCH (21:43)
[2017-12-14] MEDS: Sodium Chloride 0.9% 1000 ML 1,000 ML IV SCH ×2 (05:39→18:14)
[2017-12-14] MEDS: SODIUM CHLORIDE 0.9% IV SCH ×2 (09:35→21:44)
[2017-12-14] MEDS: ZOVIRAX IV SCH ×2 (09:35→21:44)
[2017-12-14] MEDS: hydroDIURIL 25 MG PO SCH (09:35)
[2017-12-14] MEDS: NORVASC 5 MG PO SCH (09:36)
[2017-12-14] MEDS: ZOLOFT 50 MG TABLET PO SCH (09:36)
[2017-12-14] MEDS: DIOVAN 80 MG PO SCH (09:36)
[2017-12-14] MEDS: ROCEPHIN 1 Gm-D5w 50 ml Bag** 1 G/50 ML IVPB IV SCH (09:37)
[2017-12-14] MEDS: PERCOCET TABLET 5/325MG PO PRN ×3 (09:37→21:45)
[2017-12-14] MEDS: ANTIVERT 25 MG PO SCH ×3 (09:37→21:45)
[2017-12-14] MEDS: Aricept 10 MG PO SCH (21:44)
[2017-12-14] MEDS: ZOCOR 20MG PO SCH (21:44)
[2017-12-15] MEDS: Sodium Chloride 0.9% 1000 ML 1,000 ML IV SCH (07:12)
[2017-12-15 07:31] VITALS: PULSE 69; O2SAT 96
[2017-12-15] MEDS: ANTIVERT 25 MG PO SCH (08:57)
[2017-12-15] MEDS: hydroDIURIL 25 MG PO SCH (08:57)
[2017-12-15] MEDS: PERCOCET TABLET 5/325MG PO PRN (08:57)
[2017-12-15] MEDS: DIOVAN 80 MG PO SCH (08:57)
[2017-12-15] MEDS: ROCEPHIN 1 Gm-D5w 50 ml Bag** 1 G/50 ML IVPB IV SCH (08:57)
[2017-12-15] MEDS: ZOLOFT 50 MG TABLET PO SCH (08:58)
[2017-12-15] MEDS: NORVASC 5 MG PO SCH (08:59)
--- NOTE | 2017-12-15 09:09 | PROG NOTE ---
DATE: 12/14/2017 Chart is reviewed and events noted. PHYSICAL EXAMINATION: At the time of this evaluation the patient is alert, awake, comfortable. She complains of fatigue, complains of discomfort at site of rash, appears mildly confused (baseline per nursing staff). Denies increased shortness of breath. Denies any other complaints. VITAL SIGNS: Blood pressure 117/58, heart rate 51, respiratory rate 18, temperature 98.2F. Oxygen saturation 96%. HEENT: Pallor is present. No icterus is noted. NECK: No JVD is present. CVS: S1, S2 present. RESPIRATORY: Breath sounds are diminished, clear to auscultation. ABDOMEN: Soft, nontender. NEURO: She is alert, awake, mildly confused, somewhat hard of hearing, answers simple questions. EXTREMITIES: No edema on bilateral lower extremities. SKIN: Examination revealed diffuse area of rash on left lower back/left flank area. LABORATORY DATA AND TESTS: There were no new labs today. Medications were reviewed. ASSESSMENT: An 82 year old woman with impression: 1) Generalized weakness. 2) Herpes Zoster (left lower back/left flank area). 3) Urinary tract infection. 4) Hypertension. 5) Dementia. 6) History of depression. 7) History of renal insufficiency. PLAN: Continue IV antibiotics, continue antiviral, continue isolation. Likely discharge to group home Discussed with patient regarding current plan of management and also patient's (he is very hard of hearing) was present at the time of this evaluation, tried to explain to him regarding the patient available work up results and plan of management. The patient insists that she does not wish to go to group home. I advised the patient to discuss plan of care with Dr. Syed when he is back tomorrow. The patient was in agreement with the plan of management as noted. The plan was discussed with the patient's nurse, , performed at the time of this evaluation.
[2017-12-15] MEDS: ZOVIRAX IV SCH (10:09)
[2017-12-15] MEDS: SODIUM CHLORIDE 0.9% IV SCH (10:09)
[2017-12-15 10:54] VITALS: BP 148/66
--- NOTE | 2017-12-15 13:17 | PCM.DS ---
Discharge Summary Date of Admission: 12/11/17 12:02 Admitting Physician: RUBEN RICHARD Primary Care Provider: KATHERINE SANDERS Allergies Allergies No Known Drug Allergies Allergy (Verified 12/08/17 04:54) Hospital Summary - Hospital Course Hospital Course: Last Vital Signs Temp 98.2 F 12/15/17 10:54 Pulse 69 12/15/17 10:54 Resp 18 12/15/17 10:54 BP 148/66 12/15/17 10:54 Pulse Ox 96 12/15/17 10:54 Allergies No Known Drug Allergies Allergy (Verified 12/08/17 04:54) Active Medications Acetaminophen (Tylenol 325 Mg) 325 mg PO Q4H PRN PRN PRN Reason: PAIN, FEVER, HEADACHE Stop: 01/10/18 12:19 Last Admin: 12/13/17 12:41 Dose: 325 mg Amlodipine Besylate (Norvasc 5 Mg) 5 mg PO DAILY SREE Stop: 01/11/18 09:59 Last Admin: 12/15/17 08:59 Dose: 5 mg Diphenoxylate HCl/Atropine (Lomotil) 1 tablet PO QID PRN PRN PRN Reason: DIARRHEA Stop: 01/11/18 16:05 Last Admin: 12/13/17 12:41 Dose: 1 tablet Donepezil HCl (Aricept 10 Mg) 5 mg PO HS SREE Stop: 01/10/18 21:59 Last Admin: 12/14/17 21:44 Dose: 5 mg Hydrochlorothiazide (Hydrodiuril 25 Mg) 12.5 mg PO DAILY SREE Stop: 01/11/18 09:59 Last Admin: 12/15/17 08:57 Dose: 12.5 mg Ceftriaxone Sodium/Dextrose (Rocephin 1 Gm-D5w 50 Ml Bag) 1 g in 50 mls @ 100 mls/hr IV Q24H10 SREE Stop: 01/10/18 12:59 Last Admin: 12/15/17 08:57 Dose: 100 mls/hr Sodium Chloride (Sodium Chloride 0.9% 1000 Ml) 1,000 mls @ 100 mls/hr IV .Q10H SREE Stop: 01/10/18 12:29 Last Admin: 12/15/17 07:12 Dose: 100 mls/hr Acyclovir Sodium 400 mg/ (Sodium Chloride) 100 mls @ 100 mls/hr IV Q12HT SREE Stop: 01/10/18 13:59 Last Admin: 12/15/17 10:09 Dose: 100 mls/hr Meclizine HCl (Antivert 25 Mg) 25 mg PO TID SREE Stop: 01/10/18 14:59 Last Admin: 12/15/17 08:57 Dose: 25 mg Oxycodone/Acetaminophen (Percocet Tablet 5/325mg) 1 tab PO QIDP PRN PRN Reason: PAIN Stop: 12/17/17 13:29 Last Admin: 12/15/17 08:57 Dose: 1 tab Sertraline HCl (Zoloft 50 Mg Tablet) 25 mg PO DAILY [facility] Stop: 01/11/18 09:59 Last Admin: 12/15/17 08:58 Dose: 25 mg Simvastatin (Zocor 20mg) 20 mg PO HS [facility] Stop: 01/10/18 21:59 Last Admin: 12/14/17 21:44 Dose: 20 mg Valsartan (Diovan 80 Mg) 160 mg PO DAILY SREE Stop: 01/11/18 09:59 Last Admin: 12/15/17 08:57 Dose: 160 mg Intake & Output 12/15/17 12/16/17 11:59 11:59 Intake Total 2861 Output Total 1875 Balance 986 - Vitals & Intake/Output Vital Signs: Vital Signs Temperature 98.2 F 12/15/17 10:54 Pulse Rate 69 12/15/17 10:54 Respiratory Rate 18 12/15/17 10:54 Blood Pressure 148/66 12/15/17 10:54 O2 Sat by Pulse Oximetry 96 12/15/17 10:54 Intake & Output: Intake & Output 12/13/17 12/14/17 12/15/17 12/16/17 11:59 11:59 11:59 11:59 Intake Total 3350 3303 2861 Output Total 3923 306 9185 Balance 2250 2853 986 - Lab Result Diagrams: 12/11/17 13:15 12/11/17 13:15 Micro Results-Entire Visit: Microbiology 12/11/17 Unknown Urine Culture - Final Urine, Void <10K NORMAL SKIN DARELL PROBABLE SKIN CONTAMINANT - Procedures and Test Procedures and Tests throughout Hospitalization: Therapy Orders & Screens 12/11/17 12:20 EKG STAT Comment: Discharge Exam General Appearance: no apparent distress, alert Neurologic Exam: alert, oriented x 3, cooperative, normal mood/affect, nml cerebellar function, sensation nml, No motor deficits Skin Exam: normal color, warm, dry Eye Exam: PERRL, EOMI, eyes nml inspection Ears, Nose, Throat Exam: normal ENT inspection, pharynx normal, moist mucous membranes Neck Exam: normal inspection, non-tender, supple, full range of motion Respiratory Exam: normal breath sounds, lungs clear, No respiratory distress Cardiovascular Exam: regular rate/rhythm, normal heart sounds Gastrointestinal/Abdomen Exam: soft, No tenderness, No mass Extremity Exam: normal inspection, normal range of motion Back Exam: normal inspection, normal range of motion, No CVA tenderness, No vertebral tenderness Pelvic Exam: deferred Rectal Exam: deferred Final Diagnosis/Problem List - Final Discharge Diagnosis/Problem (1) Shingles (herpes zoster) polyneuropathy Current Visit: Yes Status: Acute (2) UTI (urinary tract infection) Current Visit: Yes Status: Resolved Onset Date: ~12/11/17 (3) Failure of outpatient treatment Current Visit: Yes Status: Acute Onset Date: ~12/11/17 (4) Weakness Current Visit: Yes Status: Resolved Onset Date: ~12/11/17 - Discharge Discharge Date: 12/15/17 Disposition: Home, Self-Care Condition: Stable Prescriptions: New Oxycodone/APAP 5 mg/325 mg [Percocet Tablet 5/325Mg] 1 tab PO QIDP PRN # 30 tablet MDD 4 PRN Reason: Pain Acyclovir 800 mg [Zovirax 800 mg] 800 mg PO TID 10 Days #30 tablet Continue Rosuvastatin Calcium [Crestor] 10 mg PO DAILY Amlodipine Besylate 5 mg [Norvasc 5 mg] 5 mg PO DAILY Valsartan/Hydrochlorothiazide [Diovan Hct 160-12.5 mg Tab] 1 each PO DAILY Sertraline HCl 25 mg PO DAILY Meclizine HCl 25 mg [Antivert 25 mg] 25 mg PO TID Donepezil HCl 5 mg PO HS Discontinued Levofloxacin [Levaquin] 500 mg PO DAILY Follow up with: RUBEN RICHARD MD [ACTIVE STAFF] - 1 Week KATHERINE SANDERS [Primary Care Provider] - 1 Week
== END 2017-12-15 14:06 | DRG 596 ==
LOC: MED SURG 12:02 → OBSVTOIN 12:02 → MED SURG 13:21
PROVIDERS: ADMIT General Practice; ATTEND General Practice
DX: B02.9 Zoster without complications (principal); N39.0 Urinary tract infection, site not specified; G62.9 Polyneuropathy, unspecified; Z78.9 Other specified health status; R53.1 Weakness; I12.9 Hypertensive chronic kidney disease with stage 1 through stage 4 chronic kidney disease, or unspecified chronic kidney disease; N18.9 Chronic kidney disease, unspecified; F03.90 Unspecified dementia, unspecified severity, without behavioral disturbance, psychotic disturbance, mood disturbance, and anxiety; F32.9 Major depressive disorder, single episode, unspecified; T14.8XXA Other injury of unspecified body region, initial encounter; W57.XXXA Bitten or stung by nonvenomous insect and other nonvenomous arthropods, initial encounter
CPT/HCPCS: 36415; 71046; 80053; 81001; 83880; 85025; 87086; 93005; J0133; J0696; A9270-GY

== ENCOUNTER 2018-09-25 14:27 | Inpatient (IN) | payer MEDICARE, OTHER ==
[2018-09-25] MEDS ORDERED: Sodium Chloride 0.9% 500 ML 500 ML IV ONE (14:50)
--- NOTE | 2018-09-25 14:57 | ERPHSYRPT ---
- History of Present Illness Time Seen by Provider: 09/25/18 14:45 Source: patient, family, EMS Exam Limitations: no limitations Patient Subjective Stated Complaint: removed patient from car in ambulance bay , she fainted at home nad woke up laying on her back. was taking her to dr office to get checked out but was unable to get her out of car so they had him bring her here Triage Nursing Assessment: patient has small scrape on back, skin warm dry and intact, pulses present bilateral radius, skin loose, patient is alert and orietnedx3, ambulates with assistance of two. Physician History: 83 y/o white female presents via ems for weakness and possible syncopal episode. pt denies head injury, denies pain of any kind. pt states she has not had an appetite for several months and just does not feel like eating or drinking. confirms pts story and he adds she only consumes 3 ensure a day. pt has h/o dementia. Witnessed: unwitnessed Timing/Duration: today Precipitating Factors: unknown Context: standing Loss of Consciousness: brief (seconds) Charcter of event(s): felt faint Allergies/Adverse Reactions: No Known Drug Allergies Allergy (Verified 01/14/18 09:22) Home Medications: Donepezil HCl 1 tab PO HS 12/11/17 [History] Sertraline HCl 1 tab PO HS 12/11/17 [History] Acetaminophen 325 mg [Tylenol 325 mg] 2 tab PO Q4H PRN PRN 01/14/18 [ History] Clonazepam 0.5 mg [Klonopin 0.5 MG] 0.5 mg PO TIDPRN PRN 01/14/18 [History ] Meclizine HCl 25 mg [Antivert 25 mg] 1 tab PO TID 01/14/18 [History] Oxycodone HCl/Acetaminophen [Percocet 5-325 mg Tablet] 1 tab PO Q6H PRN [History] Rosuvastatin Calcium [Crestor] 1 tab PO HS 01/14/18 [History] Hx Tetanus, Diphtheria Vaccination/Date Given: Yes Hx Influenza Vaccination/Date Given: Yes Hx Pneumococcal Vaccination/Date Given: Yes Immunizations Up to Date: Yes - Past Medical History Pertinent Past Medical History: Yes Neurological History: Dementia, Other ENT History: Cataracts Cardiac History: Hypertension Respiratory History: No Pertinent History Endocrine Medical History: No Pertinent History Musculoskeletal History: Arthritis GI Medical History: Gallbladder Disease History: No Pertinent History Psycho-Social History: Depression Female Reproductive Disorders: No Pertinent History Other Medical History: Pt very forgetful denies dementia but takes aricept. Pt and are poor historians. Pt here for Infusion. Lungs clear. Resp easy and unlabored. Heart tones regular. Abd soft and nontender. No swelling noted to ankles or feet. - Past Surgical History Past Surgical History: Yes Neuro Surgical History: No Pertinent History Cardiac: No Pertinent History Respiratory: No Pertinent History Gastrointestinal: Cholecystectomy Genitourinary: No Pertinent History Musculoskeletal: Other Female Surgical History: No Pertinent History Other Surgical History: Hx od Miley and lower back surgery. Pt is scheduled for cataract surgery on 02-01-2018 - Social History Smoking Status: Never smoker Exposure to second hand smoke: Yes ( smoking) Drug Use: none Patient Lives Alone: No - Review of Systems Constitutional: No Symptoms Eyes: No Symptoms Ears, Nose, & Throat: No Symptoms Respiratory: No Symptoms Cardiac: No Symptoms Abdominal/Gastrointestinal: No Symptoms Genitourinary Symptoms: No Symptoms Musculoskeletal: No Symptoms Skin: No Symptoms Neurological: Dizziness Psychological: No Symptoms Endocrine: No Symptoms Hematologic/Lymphatic: No Symptoms Immunological/Allergic: No Symptoms All Other Systems: Reviewed and Negative Physical Exam - Nursing Vital Signs Nursing Vital Signs: Initial Vital Signs Temperature 97.7 F 09/25/18 14:28 Pulse Rate 87 09/25/18 14:28 Respiratory Rate 18 09/25/18 14:28 Blood Pressure 94/52 09/25/18 14:28 O2 Sat by Pulse Oximetry 99 09/25/18 14:28 Pain Scale Pain Intensity 0 - [place] Coma Scale Best Eye Response ([place]aco): (4) open spontaneously Best Verbal Response (Inoc[place]): (5) oriented Best Motor Response ([place]): (6) obeys commands Inoc[place] Total: 15 - Physical Exam General Appearance: no apparent distress, alert, anxiety, cachetic Eye Exam: bilateral eye: normal inspection, PERRL, EOMI Ears, Nose, Throat Exam: normal ENT inspection, dry mucous membranes Neck Exam: normal inspection, non-tender, supple, full range of motion Respiratory: normal breath sounds, lungs clear, airway intact, No chest tenderness, No respiratory distress Cardiovascular: regular rate/rhythm, normal heart sounds, normal peripheral pulses Gastrointestinal: soft, normal bowel sounds, No tenderness Pelvic Exam: not done Rectal Exam: not done Back Exam: normal inspection, normal range of motion, No CVA tenderness, No vertebral tenderness Extremity Exam: normal inspection, normal range of motion, pelvis stable 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, oriented x 3, 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 Exam: normal hearing, normal speech, PERRL Coordination/Gait: normal finger to nose, normal gait, normal cerebellar function Skin Exam: normal color, warm, dry SpO2 Interpretation: normal SpO2: 99 O2 Delivery: Room Air - Course Nursing assessment & vital signs reviewed: Yes EKG Interpreted by Me: RATE (92), Sinus Rhythm, NORMAL AXIS, NORMAL INTERVALS, NORMAL QRS, Other (comparison ekg 12/12/18) Ordered Tests: Active Orders 24 hr Category Date Time Status Patrol Driver STAT Care 09/25/18 14:50 Active EKG-ER Only STAT Care 09/25/18 14:48 Active IV Insertion STAT Care 09/25/18 14:48 Active HEAD WITHOUT CONTRAST [CT] Stat Exams 09/25/18 14:49 Completed CBC W DIFF Stat Lab 09/25/18 14:55 Completed CMP Stat Lab 09/25/18 14:55 Completed CULTURE,URINE Stat Lab 09/25/18 Received UA W/RFX UR CULTURE Stat Lab 09/25/18 Completed Medication Summary Discontinued Medications Generic Name Dose Route Start Last Admin Trade Name Sidneyq PRN Reason Stop Dose Admin Sodium Chloride 500 mls @ 500 mls/hr 09/25/18 14:50 09/25/18 15:41 Sodium Chloride 0.9% 500 Ml IV 09/25/18 15:49 500 mls/hr .Q1H ONE Administration Sodium Chloride Confirm 09/25/18 15:36 Sodium Chloride 0.9% 1000 Ml Administered 09/25/18 15:37 Dose 1,000 mls @ ud .ROUTE .STK-MED ONE Lab/Rad Data: Laboratory Result Diagrams 09/25/18 14:55 09/25/18 14:55 Laboratory Results 09/25/18 09/25/18 09/25/18 Range/Units Unknown 14:55 14:55 WBC 7.1 (4.0-10.5) K/mm3 RBC 2.36 L (4.1-5.4) M/mm3 Hgb 8.0 L (12.0-16.0) gm/dl Hct 24.9 L (35-47) % MCV 105.5 H (78-100) fl MCH 33.8 H (26-32) pg MCHC 32.1 (32-36) g/dl RDW 12.4 (11.5-14.0) % Plt Count 145 L (150-450) K/mm3 MPV 11.0 H (6-9.5) fl Gran % 56.5 (36.0-66.0) % Eos # (Auto) 0.19 (0-0.5) Absolute Lymphs (auto) 2.07 (1.0-4.6) Absolute Monos (auto) 0.80 (0.0-1.3) Lymphocytes % 29.2 (24.0-44.0) % Monocytes % 11.3 (0.0-12.0) % Eosinophils % 2.7 (0.00-5.0) % Basophils % 0.3 (0.0-0.4) % Absolute Granulocytes 4.00 (1.4-6.9) Basophils # 0.02 (0-0.4) Sodium 143 (137-145) mmol/L Potassium 4.1 (3.5-5.1) mmol/L Chloride 107 (98-107) mmol/L Carbon Dioxide 23 (22-30) mmol/L Anion Gap 17.7 H (5-15) MEQ/L BUN 66 H (7-17) mg/dL Creatinine 2.44 H (0.52-1.04) mg/dL Estimated GFR 20.2 ML/MIN Glucose 101 (74-106) mg/dL Calcium 9.8 (8.4-10.2) mg/dL Total Bilirubin 0.30 (0.2-1.3) mg/dL AST 29 (14-36) U/L ALT 16 (0-35) U/L Alkaline Phosphatase 54 (38-126) U/L Serum Total Protein 7.8 (6.3-8.2) g/dL Albumin 4.3 (3.5-5.0) g/dL Urine Color YELLOW (YELLOW) Urine Appearance SLIGHTLY CLOUDY (CLEAR) Urine pH 7.0 (5-6) Ur Specific [place] 1.014 (1.005-1.025) Urine Protein NEGATIVE (Negative) Urine Ketones NEGATIVE (NEGATIVE) Urine Blood NEGATIVE (0-5) Ubaldo/ul Urine Nitrite NEGATIVE (NEGATIVE) Urine Bilirubin NEGATIVE (NEGATIVE) Urine Urobilinogen NEGATIVE (0-1) mg/dL Ur Leukocyte Esterase LARGE (NEGATIVE) Urine WBC (Auto) 26-50 (0-5) /HPF Urine RBC (Auto) 3-5 (0-2) /HPF U Hyaline Cast (Auto) 3-5 (0-2) /LPF U Epithel Cells (Auto) RARE (FEW) /HPF Urine Bacteria (Auto) FEW (NEGATIVE) /HPF U Non-Squamous Epi Cells RARE (FEW) /HPF Urine Mucus (Auto) SLIGHT (NEGATIVE) /HPF Urine Culture Reflexed YES (NO) Urine Glucose NEGATIVE (NEGATIVE) mg/dL - Progress Progress: improved, re-examined Progress Note: 09/25/18 16:54 ct head-no new or acute intracranial abnormalities. Counseled pt/family regarding: lab results, diagnosis, rad results - Departure Departure Disposition: Observation Clinical Impression: Weakness, Renal insufficiency, UTI (urinary tract infection), Anemia Condition: Fair Critical Care Time: No Referrals: KATHERINE SANDERS [ACTIVE STAFF] -
[2018-09-25 15:10] LABS: BASOPHIL % 0.3 % (0.0-0.4); Basophil (Absolute #) 0.02 (0-0.4); Eosinophil % 2.7 % (0.00-5.0); Eosinophil (Absolute #) 0.19 (0-0.5); Granulocytes % 56.5 % (36.0-66.0); Hematocrit 24.9 % (35-47); Lymphocyte (Absolute #) 2.07 (1.0-4.6); Lymphocytes % 29.2 % (24.0-44.0); Mean Cell Volume 105.5 fl (78-100); Mean Corpuscular Hgb Concent. 32.1 g/dl (32-36); Monocytes % 11.3 % (0.0-12.0); Platelet Count 145 K/mm3 (150-450); Red Blood Count 2.36 M/mm3 (4.1-5.4); Red Cell Distribution Width 12.4 % (11.5-14.0); White Blood Count 7.1 K/mm3 (4.0-10.5)
[2018-09-25 15:15] LABS: Mean Corpuscular Hemoglobin 33.8 pg (26-32)
[2018-09-25 15:23] LABS: ALBUMIN 4.3 g/dL (3.5-5.0); ANION GAP 17.7 MEQ/L (5-15); BILIRUBIN,TOTAL 0.3 mg/dL (0.2-1.3); Calcium 9.8 mg/dL (8.4-10.2); Creatinine 1 2.44 mg/dL (0.52-1.04); Potassium 4.1 mmol/L (3.5-5.1); Total Protein 7.8 g/dL (6.3-8.2)
[2018-09-25] MEDS ORDERED: Sodium Chloride 0.9% 1000 ML 1,000 ML ONE (15:36)
--- NOTE | 2018-09-25 16:00 | XRAY ---
Indication: Syncope. History stroke. Multiple contiguous axial images obtained through the head without contrast. Comparison: December 08, 2017. Images through the base of the brain slightly degraded by motion artifact even with repeat CT. Grossly stable age-appropriate global atrophy and minimal periventricular degenerative microvascular ischemia bilaterally. No acute intracranial hemorrhage, abnormal extra-axial fluid collection, or mass effect. Fourth ventricle is midline without hydrocephalus. Bony calvarium intact. 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 Remaining visualized paranasal sinuses are clear. Impression: Mild motion artifact. Grossly stable nonacute senile brain including stable right maxillary sinus polyp/retention cyst and complete opacification of the right mastoid air cells. No new or acute intracranial abnormalities. CTDI 68.32
[2018-09-25 16:41] LABS: Appearance SLIGHTLY CLOUDY (CLEAR); Bacteria FEW /HPF (NEGATIVE); Bilirubin NEGATIVE (NEGATIVE); Blood NEGATIVE Ery/ul (0-5); Epithelial Cells RARE /HPF (FEW); Glucose NEGATIVE (NEGATIVE); Ketones NEGATIVE (NEGATIVE); Leukocyte Esterase LARGE (NEGATIVE); Mucus SLIGHT /HPF (NEGATIVE); Nitrite NEGATIVE (NEGATIVE); Non-Squamous Epithelial Cells RARE /HPF (FEW); Protein,Urine Dip NEGATIVE (Negative); Specific Gravity 1.014 (1.005-1.025); Urobilinogen NEGATIVE mg/dL (0-1); WBC 26-50 /HPF (0-5)
[2018-09-25] MEDS ORDERED: ROCEPHIN 1 Gm-D5w 50 ml Bag** 1 G/50 ML IVPB IV STA (16:57)
[2018-09-25] MEDS ORDERED: ROCEPHIN 1 Gm-D5w 50 ml Bag** 1 G/50 ML IVPB IV ONE (17:40)
[2018-09-25] MEDS ORDERED: Zofran 4 MG/2 ML VIAL IV PRN (17:59)
[2018-09-25] MEDS ORDERED: TYLENOL 325 MG PO PRN (17:59)
[2018-09-25] MEDS: ZOLOFT 50 MG TABLET PO SCH (21:33)
[2018-09-25] MEDS: ANTIVERT 25 MG PO SCH (21:34)
[2018-09-25] MEDS: Zocor 10MG PO SCH (21:34)
[2018-09-25] MEDS: Sodium Chloride 0.9% 1000 ML 1,000 ML IV SCH (22:51)
[2018-09-26 06:03] LABS: BASOPHIL % 0.3 % (0.0-0.4); Basophil (Absolute #) 0.02 (0-0.4); Eosinophil % 1.5 % (0.00-5.0); Eosinophil (Absolute #) 0.09 (0-0.5); Granulocytes % 57.7 % (36.0-66.0); Hematocrit 21.4 % (35-47); Lymphocyte (Absolute #) 1.81 (1.0-4.6); Lymphocytes % 29.8 % (24.0-44.0); Mean Cell Volume 104.9 fl (78-100); Mean Corpuscular Hemoglobin 33.8 pg (26-32); Mean Corpuscular Hgb Concent. 32.2 g/dl (32-36); Mean Platelet Volume 10.7 fl (6-9.5); Monocyte (Absolute #) 0.65 (0.0-1.3); Monocytes % 10.7 % (0.0-12.0); Platelet Count 119 K/mm3 (150-450); Red Blood Count 2.04 M/mm3 (4.1-5.4); Red Cell Distribution Width 12.4 % (11.5-14.0); White Blood Count 6.1 K/mm3 (4.0-10.5)
[2018-09-26 06:06] LABS: Hemoglobin 6.9 gm/dl (12.0-16.0)
[2018-09-26 06:10] LABS: ALBUMIN 3.5 g/dL (3.5-5.0); ANION GAP 10.5 MEQ/L (5-15); BILIRUBIN,TOTAL 0.3 mg/dL (0.2-1.3); Creatinine 1 2.07 mg/dL (0.52-1.04); Potassium 4.1 mmol/L (3.5-5.1); Total Protein 6.6 g/dL (6.3-8.2)
[2018-09-26] MEDS ORDERED: PROTONIX 40 MG IV IV ONE (07:09)
[2018-09-26 07:42] LABS: Iron 40 ug/dL (37-170); Iron Saturation 13 % (20-39); TIBC 315 ug/dL (265-462)
[2018-09-26 08:43] LABS: ABO TYPING O; Antibody Screen NEGATIVE (NEGATIVE); RH TYPING POSITIVE
[2018-09-26] MEDS ORDERED: TYLENOL 325 MG PO PRN (08:44)
[2018-09-26 08:45] LABS: CROSS MATCH (PRBC) COMPATIBLE (COMPATIBLE)
[2018-09-26] MEDS ORDERED: HYDROCHLOROTHIAZIDE PO SCH (10:00)
[2018-09-26] MEDS ORDERED: VALSARTAN PO SCH (10:00)
[2018-09-26] MEDS ORDERED: [UNRECOGNIZED DRUG - OTHER] PO SCH (10:00)
[2018-09-26] MEDS: ANTIVERT 25 MG PO SCH ×3 (10:10→20:55)
[2018-09-26] MEDS: hydroDIURIL 25 MG PO SCH (10:10)
[2018-09-26] MEDS: ROCEPHIN 1 Gm-D5w 50 ml Bag** 1 G/50 ML IVPB IV SCH (10:10)
[2018-09-26] MEDS: NORVASC 5 MG PO SCH (10:10)
[2018-09-26] MEDS: DIOVAN 80 MG PO SCH (10:10)
[2018-09-26 17:44] LABS: Hematocrit 32.9 % (35-47); Hemoglobin 10.9 gm/dl (12.0-16.0)
[2018-09-26] MEDS: Zocor 10MG PO SCH (20:55)
[2018-09-26] MEDS: ZOLOFT 50 MG TABLET PO SCH (20:55)
[2018-09-26] MEDS ORDERED: Haldol 5 MG PO ONE ×2 (23:42)
[2018-09-27] MEDS ORDERED: Haldol 5 MG IM ONE (00:35)
[2018-09-27 05:47] LABS: BASOPHIL % 0.3 % (0.0-0.4); Basophil (Absolute #) 0.02 (0-0.4); Eosinophil % 0.6 % (0.00-5.0); Eosinophil (Absolute #) 0.04 (0-0.5); Granulocytes % 71.1 % (36.0-66.0); Hematocrit 31.1 % (35-47); Hemoglobin 10.4 gm/dl (12.0-16.0); Lymphocyte (Absolute #) 1.27 (1.0-4.6); Lymphocytes % 19.2 % (24.0-44.0); Mean Cell Volume 97.2 fl (78-100); Mean Corpuscular Hemoglobin 32.5 pg (26-32); Mean Corpuscular Hgb Concent. 33.4 g/dl (32-36); Mean Platelet Volume 10.4 fl (6-9.5); Monocyte (Absolute #) 0.58 (0.0-1.3); Monocytes % 8.8 % (0.0-12.0); Platelet Count 107 K/mm3 (150-450); Red Cell Distribution Width 16.1 % (11.5-14.0); White Blood Count 6.6 K/mm3 (4.0-10.5)
[2018-09-27] MEDS: PROTONIX 40 MG IV IV SCH (05:52)
[2018-09-27 06:07] LABS: ANION GAP 11.5 MEQ/L (5-15); Calcium 9.4 mg/dL (8.4-10.2); Creatinine 1 1.8 mg/dL (0.52-1.04)
[2018-09-27] MEDS: Sodium Chloride 0.9% 1000 ML 1,000 ML IV SCH (08:28)
[2018-09-27] MEDS: DIOVAN 80 MG PO SCH (08:58)
[2018-09-27] MEDS: NORVASC 5 MG PO SCH (08:58)
[2018-09-27] MEDS: ANTIVERT 25 MG PO SCH ×3 (08:58→22:07)
[2018-09-27] MEDS: hydroDIURIL 25 MG PO SCH (08:58)
[2018-09-27] MEDS: ROCEPHIN 1 Gm-D5w 50 ml Bag** 1 G/50 ML IVPB IV SCH (08:58)
--- NOTE | 2018-09-27 12:29 | PCM.NOTE ---
Date and Time: 09/27/18 1224 Subjective Assessment: Her night nurse, Anamika, called me and said she was very agitated and they had been one on one with her for over 3 hours and could not calm her down and was starting to become combative. I ordered haldol 2mg po once and Anamika, RN called back after one hour and said it was not helping and she was yelling out and not improved. Haldol 5 mg IM once was ordered. Her is at the bedside today and says she often gets confused at night and he does not feel like he can safely take care of her at home any more. Patient denies any pain. - Review of Systems Constitutional: Other (poor appetite) Respiratory: No Symptoms Cardiac: No Symptoms Abdominal/Gastrointestinal: No Symptoms Psychological: Memory Loss, Other (confusion) Objective Exam General Appearance: no apparent distress, other (oriented to person but not place or time) Neurologic Exam: alert, cooperative Skin Exam: normal color, warm, other (pale) Respiratory Exam: normal breath sounds, lungs clear, No crackles/rales, No rhonchi, No wheezing Cardiovascular Exam: regular rate/rhythm, normal heart sounds, No friction rub, No gallop, No tachycardia Gastrointestinal/Abdomen Exam: soft, normal bowel sounds, No tenderness, No distention, No mass Extremity Exam: other (no c/c/e) OBJECTIVE DATA Vital Signs: Vital Signs - 24 hr Temp Pulse Resp BP Pulse Ox 09/27/18 08:00 97.4 F 106 H 122/67 96 09/27/18 04:10 97.9 F 92 H 18 114/57 95 09/27/18 03:38 97.4 F 106 H 18 108/60 95 09/26/18 23:59 97.4 F 106 H 18 108/60 95 09/26/18 19:47 97.8 F 94 H 18 106/57 95 09/26/18 19:36 97.8 F 94 H 18 106/57 95 09/26/18 16:00 98.4 F 91 H 18 112/59 95 Pain Assessment - Last Documented Pain Intensity 0 Pain Scale Used 0-10 Pain Scale Intake and Output: Intake & Output 09/25/18 09/26/18 09/27/18 09/28/18 06:59 06:59 06:59 06:59 Intake Total 360 2826 120 Output Total 150 1300 Balance 210 1526 120 Weight 59.3 kg Lab Results: Lab Results-Last 24 Hours 09/26/18 09/27/18 09/27/18 Range/Units 17:41 05:26 05:26 WBC 6.6 (4.0-10.5) K/mm3 RBC 3.20 L (4.1-5.4) M/mm3 Hgb 10.9 L D 10.4 L (12.0-16.0) gm/dl Hct 32.9 L 31.1 L (35-47) % MCV 97.2 D (78-100) fl MCH 32.5 H (26-32) pg MCHC 33.4 (32-36) g/dl RDW 16.1 H (11.5-14.0) % Plt Count 107 L (150-450) K/mm3 MPV 10.4 H (6-9.5) fl Gran % 71.1 H (36.0-66.0) % Eos # (Auto) 0.04 (0-0.5) Absolute Lymphs (auto) 1.27 (1.0-4.6) Absolute Monos (auto) 0.58 (0.0-1.3) Lymphocytes % 19.2 L (24.0-44.0) % Monocytes % 8.8 (0.0-12.0) % Eosinophils % 0.6 (0.00-5.0) % Basophils % 0.3 (0.0-0.4) % Absolute Granulocytes 4.70 (1.4-6.9) Basophils # 0.02 (0-0.4) Sodium 143 (137-145) mmol/L Potassium 4.0 (3.5-5.1) mmol/L Chloride 113 H (98-107) mmol/L Carbon Dioxide 22 (22-30) mmol/L Anion Gap 11.5 (5-15) MEQ/L BUN 39 H (7-17) mg/dL Creatinine 1.80 H (0.52-1.04) mg/dL Estimated GFR 28.7 ML/MIN Glucose 89 (74-106) mg/dL Calcium 9.4 (8.4-10.2) mg/dL Radiology Exams: Radiology Procedures Category Date Time Status HEAD WITHOUT CONTRAST [CT] Stat Exams 09/25/18 14:49 Completed Assessment/Plan (1) Anemia Current Visit: Yes Status: Acute Qualifiers: Anemia type: unspecified type Qualified Code(s): D64.9 - Anemia, unspecified Assessment & Plan: s/p transfusion with 2 units of PRBCs yesterday. No stool sample to test for occult blood yet. Stable. Code(s): D64.9 - ANEMIA, UNSPECIFIED (2) UTI (urinary tract infection) Current Visit: Yes Status: Acute Assessment & Plan: Continue ceftriaxone. Code(s): N39.0 - URINARY TRACT INFECTION, SITE NOT SPECIFIED (3) Dementia with behavioral disturbance Current Visit: Yes Status: Acute Assessment & Plan: Patient required haldol last night due to being combative and risk for harm to herself or others. Patient is stable this AM. Code(s): F03.91 - UNSPECIFIED DEMENTIA WITH BEHAVIORAL DISTURBANCE (4) Hypertension Current Visit: Yes Status: Acute Assessment & Plan: Well controlled. Code(s): I10 - ESSENTIAL (PRIMARY) HYPERTENSION
[2018-09-27] MEDS: ZOLOFT 50 MG TABLET PO SCH (22:07)
[2018-09-27] MEDS: Zocor 10MG PO SCH (22:07)
[2018-09-27] MEDS ORDERED: HALDOL 1 MG PO ONE (23:29)
[2018-09-28] MEDS ORDERED: Cardizem IV 50 MG/10 ML IV ONE (02:41)
[2018-09-28] MEDS: Sodium Chloride 0.9% 1000 ML 1,000 ML IV SCH ×2 (03:02→23:09)
[2018-09-28] MEDS ORDERED: Lanoxin 0.5 MG/2 ML INJECTION IV ONE (04:10)
[2018-09-28 05:39] LABS: BASOPHIL % 0.3 % (0.0-0.4); Basophil (Absolute #) 0.02 (0-0.4); Eosinophil (Absolute #) 0.13 (0-0.5); Granulocyte Absolute (ANC) 3.99 (1.4-6.9); Granulocytes % 61.4 % (36.0-66.0); Hematocrit 30.6 % (35-47); Hemoglobin 10.2 gm/dl (12.0-16.0); Lymphocyte (Absolute #) 1.61 (1.0-4.6); Lymphocytes % 24.8 % (24.0-44.0); Mean Cell Volume 97.5 fl (78-100); Mean Corpuscular Hgb Concent. 33.3 g/dl (32-36); Mean Platelet Volume 10.7 fl (6-9.5); Monocyte (Absolute #) 0.75 (0.0-1.3); Monocytes % 11.5 % (0.0-12.0); Platelet Count 115 K/mm3 (150-450); Red Blood Count 3.14 M/mm3 (4.1-5.4); Red Cell Distribution Width 15.3 % (11.5-14.0); White Blood Count 6.5 K/mm3 (4.0-10.5)
[2018-09-28 05:49] LABS: Mean Corpuscular Hemoglobin 32.4 pg (26-32)
[2018-09-28 05:51] LABS: ANION GAP 11.3 MEQ/L (5-15); Creatinine 1 1.54 mg/dL (0.52-1.04); Potassium 3.7 mmol/L (3.5-5.1)
[2018-09-28] MEDS: PROTONIX 40 MG IV IV SCH (07:54)
--- NOTE | 2018-09-28 09:37 | HP ---
HISTORY OF PRESENT ILLNESS: This is an 83 year-old patient of Dr. Wills who presented to the emergency department. She reports she cannot really remember what happened. She thinks that she passed out. She is a poor historian. In the emergency department she was diagnosed with urinary tract infection, dementia and anemia. Looking back on her past chart her hemoglobin is usually 12 to 15 and in the emergency room it was 8.0. The certified court interpreter noted that she had a large dark stool late last night. REVIEW OF SYSTEMS: The patient denies any palpitations, no chest pain, no nausea or vomiting. No pain in general. No diarrhea. No constipation. MEDICATIONS: Please see the home medication reconciliation form. ALLERGIES: NKDA. PAST MEDICAL HISTORY: Dementia, anemia, urinary tract infection. PAST SURGICAL HISTORY: Tonsillectomy. SOCIAL HISTORY: She lives with her . Denies any tobacco or alcohol use. FAMILY HISTORY: Noncontributory. PHYSICAL EXAMINATION: VITAL SIGNS: Temperature current 98.7F, heart rate 79, respiratory rate 18, blood pressure 114/55. GENERAL: The patient is a pleasant pale lady lying in bed in no acute distress. She is oriented in that she knows she is in [place] and knows who she is. She does not know the year or who the President of [facility] is. CVS: She has a regular rate and rhythm. No murmurs, gallops or rubs. CHEST: Clear to auscultation bilaterally. No crackles or wheezes. ABDOMEN: Soft, nontender, nondistended with normal bowel sounds. EXTREMITIES: No clubbing, cyanosis or edema. SKIN: Warm, dry and intact. LABORATORY DATA AND TESTS: Hemoglobin on admission was 8.0, repeat hemoglobin this morning was 6.9, PLT count 119,000 this is close to her baseline. Creatinine was 2.07 today and on admission 2.44. Vitamin B12 was normal 543. Iron normal at 40. TRBC normal. Head CT was read as grossly stable nonacute senile brain. Please see the radiologist dictation for the full report. ASSESSMENT AND PLAN: 1) ANEMIA: As she was less than 7 with a drop over 1 gm in her hemoglobin and baseline of 12 to 15, I decided to transfuse her 2 units of packed red blood cells which the patient was agreeable to. I checked the iron and B12 levels and these were normal. I have ordered stool for hemoccult. I will continue to monitor hemoglobin closely as there is concern for possible GI bleed. I have added proton pump inhibitor daily. She most likely will need scopes in the future when she is stabilized. 2) URINARY TRACT INFECTION: Her UA had white blood cells and rare bacteria. Urine cultures in lab. She is on IV antibiotics. 3) DEMENTIA: She will need work up by her primary care provider as an outpatient. 4) HYPERTENSION: Will continue her current antihypertensive. 5) CODE STATUS: The patient does not want to have chest compressions or have any heroic measures taken such as being placed on a ventilator if something should happen suddenly and her heart would stop beating or if she stopped breathing.
[2018-09-28] MEDS: ROCEPHIN 1 Gm-D5w 50 ml Bag** 1 G/50 ML IVPB IV SCH (10:03)
[2018-09-28] MEDS: DIOVAN 80 MG PO SCH ×2 (10:08→10:16)
[2018-09-28] MEDS: hydroDIURIL 25 MG PO SCH (10:09)
[2018-09-28] MEDS: ANTIVERT 25 MG PO SCH ×3 (10:09→23:11)
[2018-09-28] MEDS: NORVASC 5 MG PO SCH ×2 (10:09→10:16)
--- NOTE | 2018-09-28 12:09 | PCM.NOTE ---
Date and Time: 09/28/18 1208 Subjective Assessment: doing ok, still confused - Review of Systems Constitutional: Lethargy, Weakness, No Fever, No Chills Eyes: No Symptoms Ears, Nose, & Throat: No Symptoms Respiratory: No Cough, No Short Of Breath Cardiac: Palpitations, No Chest Pain, No Edema, No Syncope Abdominal/Gastrointestinal: No Abdominal Pain, No Nausea, No Vomiting, No Diarrhea Genitourinary Symptoms: No Dysuria Musculoskeletal: No Back Pain, No Neck Pain Skin: No Rash Neurological: No Dizziness, No Focal Weakness, No Sensory Changes Psychological: No Symptoms Endocrine: No Symptoms Hematologic/Lymphatic: No Symptoms Immunological/Allergic: No Symptoms Objective Exam General Appearance: no apparent distress, alert Neurologic Exam: alert, No motor deficits Skin Exam: normal color, warm, dry Eye Exam: PERRL, EOMI, eyes nml inspection Ears, Nose, Throat Exam: normal ENT inspection, pharynx normal, moist mucous membranes Neck Exam: normal inspection, non-tender, supple, full range of motion Respiratory Exam: normal breath sounds, lungs clear, No respiratory distress Cardiovascular Exam: regular rate/rhythm, normal heart sounds Gastrointestinal/Abdomen Exam: soft, No tenderness, No mass Extremity Exam: normal inspection, normal range of motion Back Exam: normal inspection, normal range of motion, No CVA tenderness, No vertebral tenderness Pelvic Exam: deferred Rectal Exam: deferred OBJECTIVE DATA Vital Signs: Vital Signs - 24 hr Temp Pulse Resp BP Pulse Ox 09/28/18 08:00 98.4 F 92 H 16 120/58 93 L 09/28/18 04:00 145 H 98/62 09/28/18 03:30 147 H 81/50 09/28/18 02:00 97.6 F 163 H 16 103/62 95 09/27/18 23:44 97.8 F 93 H 18 118/60 95 09/27/18 19:52 97.7 F 105 H 18 105/58 96 09/27/18 16:00 97.7 F 92 H 18 129/58 98 Pain Assessment - Last Documented Pain Intensity 0 Pain Scale Used 0-10 Pain Scale Intake and Output: Intake & Output 09/26/18 09/27/18 09/28/18 09/29/18 11:59 11:59 11:59 11:59 Intake Total 1158 2148 1200 Output Total 350 1100 Balance 808 1048 1200 Weight 59.3 kg 61 kg Lab Results: Lab Results-Last 24 Hours 09/28/18 09/28/18 09/28/18 Range/Units 04:50 05:08 05:08 WBC 6.5 (4.0-10.5) K/mm3 RBC 3.14 L (4.1-5.4) M/mm3 Hgb 10.2 L (12.0-16.0) gm/dl Hct 30.6 L (35-47) % MCV 97.5 (78-100) fl MCH 32.4 H (26-32) pg MCHC 33.3 (32-36) g/dl RDW 15.3 H (11.5-14.0) % Plt Count 115 L (150-450) K/mm3 MPV 10.7 H (6-9.5) fl Gran % 61.4 (36.0-66.0) % Eos # (Auto) 0.13 (0-0.5) Absolute Lymphs (auto) 1.61 (1.0-4.6) Absolute Monos (auto) 0.75 (0.0-1.3) Lymphocytes % 24.8 (24.0-44.0) % Monocytes % 11.5 (0.0-12.0) % Eosinophils % 2.0 (0.00-5.0) % Basophils % 0.3 (0.0-0.4) % Absolute Granulocytes 3.99 (1.4-6.9) Basophils # 0.02 (0-0.4) Sodium 142 (137-145) mmol/L Potassium 3.7 (3.5-5.1) mmol/L Chloride 114 H (98-107) mmol/L Carbon Dioxide 21 L (22-30) mmol/L Anion Gap 11.3 (5-15) MEQ/L BUN 30 H (7-17) mg/dL Creatinine 1.54 H (0.52-1.04) mg/dL Estimated GFR 34.4 ML/MIN Glucose 77 (74-106) mg/dL Calcium 9.0 (8.4-10.2) mg/dL Stool Occult Bld Scrn POSITIVE A (NEGATIVE) Assessment/Plan (1) Atrial fibrillation Current Visit: Yes Status: Acute Code(s): I48.91 - UNSPECIFIED ATRIAL FIBRILLATION (2) Renal insufficiency Current Visit: Yes Status: Acute (3) UTI (urinary tract infection) Current Visit: Yes Status: Acute Code(s): N39.0 - URINARY TRACT INFECTION, SITE NOT SPECIFIED
[2018-09-28] MEDS: ZOLOFT 50 MG TABLET PO SCH (23:10)
[2018-09-28] MEDS: Zocor 10MG PO SCH (23:11)
[2018-09-29] MEDS: ANTIVERT 25 MG PO SCH ×2 (08:46→14:06)
[2018-09-29] MEDS: NORVASC 5 MG PO SCH (08:46)
--- NOTE | 2018-09-29 08:46 | CONS ---
CONSULT DATE: 09/28/2018 BRIEF HISTORY: This is an 83 year-old female who was seen for generalized weakness and tachycardia. The patient is a poor historian. She did mention that she feels weak. Information gathered from the chart showed that she was brought in by her after she fell on her back. There was no actual loss of consciousness. Her initial work up in this hospital showed she had urinary tract infection, renal insufficiency and with initial hemoglobin of 6.9. Her EKG showed sinus tachycardia with underlying left bundle branch block. The patient denies any history of chest pains but she has significant shortness of breath which has been going on for the last one month with dyspnea on walking across a room. She has never had myocardial infarction or heart failure. CARDIAC RISK FACTORS: Negative for diabetes. History of hypertension. No known hyperlipidemia. She does not smoke. REVIEW OF SYSTEMS: [employer]: No history of stroke. There is a diagnosis of dementia. RESPIRATORY: No chronic cough or hemoptysis. GI: Denies any abdominal pain, diarrhea or constipation. Her hemoccult test was positive. : Negative for dysuria or hematuria. She has some renal insufficiency. PERIPHERAL VASCULAR: History of deep venous thrombosis. MUSCULOSKELETAL: She has lower back pain. PAST SURGICAL HISTORY: Tonsillectomy. Back surgery. SOCIAL HISTORY: She lives with her . She has no significant alcohol intake. PHYSICAL EXAMINATION: Her blood pressure is 109/55 with heart rate of 93, respirations about 16. GENERAL: The patient is an elderly female who alert, sometimes gets confused and unable to give any meaningful historic information. HEENT: Pale conjunctivae. NECK: No significant JVD. CHEST: The breath sounds are diminished. CARDIAC: There is a grade 2/6 holosystolic murmur along the left parasternal border. The rhythm is regular. ABDOMEN: Soft with normal bowel sounds. EXTREMITIES: There is trace edema. Decreased distal pulses. LAB DATA AND DIAGNOSTIC TESTS: Hemoglobin 10.2. The EKG on 09/28/2018 showed sinus rhythm with a left bundle branch block. IMPRESSION: In essence the patient's presentation with: 1) Generalized weakness is probably related to her severe anemia most likely secondary to GI bleed, this has been partially corrected. She has multiple comorbid factors including renal insufficiency and urinary tract infection. 2) Heart murmur: Maybe secondary to mitral regurgitation. 3) Left bundle branch block. She may have an underlying cardiomyopathy and echocardiogram is requested. Her heart rate is much better controlled. Further recommendations will be made after echocardiogram is done.
[2018-09-29] MEDS: hydroDIURIL 25 MG PO SCH (08:47)
[2018-09-29] MEDS: PROTONIX 40 MG IV IV SCH (08:47)
[2018-09-29] MEDS: ROCEPHIN 1 Gm-D5w 50 ml Bag** 1 G/50 ML IVPB IV SCH (08:50)
[2018-09-29] MEDS: DIOVAN 80 MG PO SCH (08:51)
[2018-09-29 09:12] VITALS: O2SAT 97
--- NOTE | 2018-09-29 09:12 | PCM.DS ---
Discharge Summary Date of Admission: 09/26/18 09:40 Admitting Physician: RUBEN RICHARD Consults: Consults on Case 09/28/18 07:03 Consult Cardiology ROUTINE Primary Care Provider: RUBEN RICHARD Allergies Allergies No Known Drug Allergies Allergy (Verified 01/14/18 09:22) Hospital Summary - Hospital Course Hospital Course: Last Vital Signs Temp 97.8 F 09/29/18 04:00 Pulse 108 H 09/29/18 04:00 Resp 16 09/29/18 04:00 BP 123/65 09/29/18 04:00 Pulse Ox 94 L 09/29/18 00:00 Allergies No Known Drug Allergies Allergy (Verified 01/14/18 09:22) Active Medications Acetaminophen (Tylenol 325 Mg) 650 mg PO Q4H PRN PRN PRN Reason: PAIN, FEVER, HEADACHE Stop: 10/26/18 08:43 Amlodipine Besylate (Norvasc 5 Mg) 5 mg PO DAILY [facility] Stop: 10/26/18 09:59 Last Admin: 09/29/18 08:46 Dose: 5 mg Hydrochlorothiazide (Hydrodiuril 25 Mg) 12.5 mg PO DAILY [facility] Stop: 10/26/18 09:59 Last Admin: 09/29/18 08:47 Dose: 12.5 mg Ceftriaxone Sodium/Dextrose (Rocephin 1 Gm-D5w 50 Ml Bag) 1 g in 50 mls @ 100 mls/hr IV Q24H10 [facility] Stop: 10/26/18 09:59 Last Admin: 09/29/18 08:50 Dose: 100 mls/hr Sodium Chloride (Sodium Chloride 0.9% 1000 Ml) 1,000 mls @ 50 mls/hr IV .Q20H [facility] Stop: 10/25/18 17:58 Last Admin: 09/28/18 23:09 Dose: 50 mls/hr Levothyroxine Sodium (Synthroid 50 Mcg) 50 mcg PO QAM [facility] Stop: 10/29/18 09:59 Last Admin: 09/29/18 08:47 Dose: 50 mcg Meclizine HCl (Antivert 25 Mg) 25 mg PO TID [facility] Stop: 10/25/18 21:59 Last Admin: 09/29/18 08:46 Dose: 25 mg Ondansetron HCl (Zofran 4 Mg/2 Ml Vial) 4 mg IV Q6H PRN PRN PRN Reason: NAUSEA/VOMITING Stop: 10/25/18 17:58 Pantoprazole Sodium (Protonix 40 Mg Iv) 40 mg IV Q24H [facility] Stop: 10/27/18 07:14 Last Admin: 09/29/18 08:47 Dose: 40 mg Sertraline HCl (Zoloft 50 Mg Tablet) 25 mg PO HS [facility] Stop: 10/25/18 21:59 Last Admin: 09/28/18 23:10 Dose: 25 mg Simvastatin (Zocor 10mg) 10 mg PO HS [facility] Stop: 10/25/18 21:59 Last Admin: 09/28/18 23:11 Dose: 10 mg Valsartan (Diovan 80 Mg) 160 mg PO DAILY [facility] Stop: 10/26/18 09:59 Last Admin: 09/29/18 08:51 Dose: 160 mg Intake & Output 09/28/18 09/29/18 11:59 11:59 Intake Total 1200 2396 Balance 1200 2396 Weight 61 kg 59.7 kg Orders 09/29/18 10:00 Levothyroxine Sodium 50 Mcg [Synthroid 50 Mcg] 50 mcg PO QAM Lab Tests 09/28/18 05:00 TSH 3rd Generation 9.670 H - Vitals & Intake/Output Vital Signs: Vital Signs Temperature 97.8 F 09/29/18 04:00 Pulse Rate 108 H 09/29/18 04:00 Respiratory Rate 16 09/29/18 04:00 Blood Pressure 123/65 09/29/18 04:00 O2 Sat by Pulse Oximetry 94 L 09/29/18 00:00 Oxygen-Last Documented O2 Percentage 2 Liters = 28% Intake & Output: Intake & Output 09/26/18 09/27/18 09/28/18 09/29/18 11:59 11:59 11:59 11:59 Intake Total 1158 2148 1200 2396 Output Total 350 1100 Balance 808 1048 1200 2396 Weight 59.3 kg 61 kg 59.7 kg - Lab Result Diagrams: 09/28/18 05:08 09/28/18 05:08 Lab Results-Last 24 Hrs: Lab Results-Last 24 Hours 09/28/18 Range/Units 05:00 TSH 3rd Generation 9.670 H (0.47-4.68) mIU/L Micro Results-Entire Visit: Microbiology 09/25/18 Unknown Urine Culture - Final Urine, Void Streptococcus Agalactiae - Radiology Exams Ordered Rad Exams-Entire Visit: Radiology Procedures Category Date Time Status ECHO W/2D AND DOPPLER [US] Routine Exams 09/29/18 08:00 Ordered - Procedures and Test Procedures and Tests throughout Hospitalization: Therapy Orders & Screens 09/28/18 04:30 EKG STAT Comment: Diagnosis: ANEMIA, UTI, RENAL INSUFFICIENCY Discharge Exam General Appearance: no apparent distress, alert Neurologic Exam: alert, oriented x 3, cooperative, normal mood/affect, nml cerebellar function, sensation nml, No motor deficits Eye Exam: PERRL, EOMI, eyes nml inspection Ears, Nose, Throat Exam: normal ENT inspection, pharynx normal, moist mucous membranes Neck Exam: normal inspection, non-tender, supple, full range of motion Respiratory Exam: normal breath sounds, lungs clear, No respiratory distress Cardiovascular Exam: regular rate/rhythm, normal heart sounds Gastrointestinal/Abdomen Exam: soft, No tenderness, No mass Pelvic Exam: deferred Rectal Exam: deferred Back Exam: normal inspection, normal range of motion, No CVA tenderness, No vertebral tenderness Extremity Exam: normal inspection, normal range of motion Skin Exam: normal color, warm, dry Final Diagnosis/Problem List - Final Discharge Diagnosis/Problem (1) Atrial fibrillation Current Visit: Yes Status: Acute Priority: High Assessment & Plan: Last Vital Signs Temp 97.8 F 09/29/18 08:00 Pulse 108 H 09/29/18 08:00 Resp 16 09/29/18 08:00 BP 123/65 09/29/18 08:00 Pulse Ox 94 L 09/29/18 00:00 Allergies No Known Drug Allergies Allergy (Verified 01/14/18 09:22) Active Medications Acetaminophen (Tylenol 325 Mg) 650 mg PO Q4H PRN PRN PRN Reason: PAIN, FEVER, HEADACHE Stop: 10/26/18 08:43 Amlodipine Besylate (Norvasc 5 Mg) 5 mg PO DAILY [facility] Stop: 10/26/18 09:59 Last Admin: 09/29/18 08:46 Dose: 5 mg Hydrochlorothiazide (Hydrodiuril 25 Mg) 12.5 mg PO DAILY [facility] Stop: 10/26/18 09:59 Last Admin: 09/29/18 08:47 Dose: 12.5 mg Ceftriaxone Sodium/Dextrose (Rocephin 1 Gm-D5w 50 Ml Bag) 1 g in 50 mls @ 100 mls/hr IV Q24H10 [facility] Stop: 10/26/18 09:59 Last Admin: 09/29/18 08:50 Dose: 100 mls/hr Sodium Chloride (Sodium Chloride 0.9% 1000 Ml) 1,000 mls @ 50 mls/hr IV .Q20H [facility] Stop: 10/25/18 17:58 Last Admin: 09/28/18 23:09 Dose: 50 mls/hr Levothyroxine Sodium (Synthroid 50 Mcg) 50 mcg PO QAM [facility] Stop: 10/29/18 09:59 Last Admin: 09/29/18 08:47 Dose: 50 mcg Meclizine HCl (Antivert 25 Mg) 25 mg PO TID [facility] Stop: 10/25/18 21:59 Last Admin: 09/29/18 08:46 Dose: 25 mg Ondansetron HCl (Zofran 4 Mg/2 Ml Vial) 4 mg IV Q6H PRN PRN PRN Reason: NAUSEA/VOMITING Stop: 10/25/18 17:58 Pantoprazole Sodium (Protonix 40 Mg Iv) 40 mg IV Q24H [facility] Stop: 10/27/18 07:14 Last Admin: 09/29/18 08:47 Dose: 40 mg Sertraline HCl (Zoloft 50 Mg Tablet) 25 mg PO HS [facility] Stop: 10/25/18 21:59 Last Admin: 09/28/18 23:10 Dose: 25 mg Simvastatin (Zocor 10mg) 10 mg PO HS [facility] Stop: 10/25/18 21:59 Last Admin: 09/28/18 23:11 Dose: 10 mg Valsartan (Diovan 80 Mg) 160 mg PO DAILY [facility] Stop: 10/26/18 09:59 Last Admin: 09/29/18 08:51 Dose: 160 mg Intake & Output 09/28/18 09/29/18 11:59 11:59 Intake Total 1200 2396 Balance 1200 2396 Weight 61 kg 59.7 kg Orders 07/16/19 10:00 Levothyroxine Sodium 50 Mcg [Synthroid 50 Mcg] 50 mcg PO QAM Lab Tests 09/28/18 05:00 TSH 3rd Generation 9.670 H Code(s): I48.91 - UNSPECIFIED ATRIAL FIBRILLATION (2) Renal insufficiency Current Visit: Yes Status: Acute (3) UTI (urinary tract infection) Current Visit: Yes Status: Resolved Code(s): N39.0 - URINARY TRACT INFECTION , SITE NOT SPECIFIED - Discharge Disposition: DC TO [facility] Condition: Stable Prescriptions: New Xaka0lx/C/B12/Lv-Stm/If/FA [Eritrogen Tablet] 1 each PO BID #60 tablet Continue Rosuvastatin Calcium [Crestor] 1 tab PO HS Meclizine HCl 25 mg [Antivert 25 mg] 1 tab PO TID Acetaminophen 325 mg [Tylenol 325 mg] 2 tab PO Q4H PRN PRN PRN Reason: Pain, Fever, Headache Valsartan/Hydrochlorothiazide [Valsartan-Hctz 160-12.5 mg Tab] 1 tab PO DAILY Sertraline HCl 25 mg PO HS Amlodipine Besylate 5 mg PO DAILY Additional Instructions: Discharge/Care Plan STU AU was discharged on 09/29/18 to [facility]. The patient and her were counseled regarding Diagnosis,Lab results, Imaging studies , need for follow up and when to return to the Emergency Room. Prescriptions given: Discharge Note I have spoken with the patient and/or caregivers. I have explained the patient' s condition, diagnosis and treatment plan based on the information available to me at this time. I have answered the patient's and/or caregiver's questions and addressed any concerns. The patient and/or caregivers have as good understanding of the patient's diagnosis, condition and treatment plan as can be expected at this point. The vital signs have been stable. The patient's condition is stable and appropriate for discharge from the emergency department. The patient will pursue further outpatient evaluation with the primary care physician or other designated or consulting physician as outlined in the discharge instructions. The patient and/or caregivers are agreeable to this plan of care and follow-up instructions have been explained in detail. The patient and/or caregivers have received these instruction. The patient/and or caregivers are aware that any significant change in condition or worsening of symptoms should prompt an immediate return to this or the closest emergency department or call 911. Follow up with: RUBEN RICHARD MD [Primary Care Provider] - 1 Week
[2018-09-29] MEDS ORDERED: SYNTHROID 50 MCG PO SCH (10:00)
--- NOTE | 2018-09-29 10:44 | XRAY ---
Indication: longterm admission. Comparison: December 11, 2017. Portable chest is slightly sidebent and rotated. Lungs remain inflated and clear. Heart remains borderline enlarged. Bony thorax again demonstrates osteopenia, degenerative changes, scoliosis, and T7/T8 kyphoplasty. Impression: Stable nonacute chest with chronic features.
[2018-09-29 15:05] VITALS: BP 97/57; PULSE 95
== END 2018-09-29 15:40 | DRG 309 ==
LOC: ED 14:27 → MED SURG 17:53 → INTOOBSV 09-26 09:40 → OBSVTOIN 09-26 09:40
PROVIDERS: ADMIT General Practice; ATTEND General Practice
DX: I48.91 Unspecified atrial fibrillation (principal); N39.0 Urinary tract infection, site not specified; F03.91 Unspecified dementia, unspecified severity, with behavioral disturbance; D64.9 Anemia, unspecified; R53.1 Weakness; N28.9 Disorder of kidney and ureter, unspecified; I10 Essential (primary) hypertension; R01.1 Cardiac murmur, unspecified; I44.7 Left bundle-branch block, unspecified; Z79.899 Other long term (current) drug therapy; R55 Syncope and collapse
CPT/HCPCS: 36000; 36415; 36430; 70450; 71045; 80048; 80053; 81001; 82270; 82607; 83540; 83550; 84443; 85014; 85018; 85025; 86850; 86900; 86901; 86922; 87077; 87086; 87186; 93005; 93041; 93268; 93306; 96360; 96365; 99285; G0378; P9016; J0696; J1630; A9270-GY

== ENCOUNTER 2019-05-20 10:43 | Inpatient (IN) | payer MEDICARE, OTHER ==
[2019-05-20] MEDS ORDERED: Sodium Chloride 0.9% 1000 ML 1,000 ML IV STA (14:48)
[2019-05-20] MEDS: Sodium Chloride 0.9% 1000 ML 1,000 ML IV SCH (15:19)
[2019-05-20 15:32] LABS: Hematocrit 29.7 % (35-47); Hemoglobin 9.6 gm/dl (12.0-16.0); Mean Cell Volume 100.7 fl (78-100); Mean Corpuscular Hemoglobin 32.5 pg (26-32); Mean Corpuscular Hgb Concent. 32.3 g/dl (32-36); Mean Platelet Volume 11.4 fl (7.5-11.0); Platelet Count 148 K/mm3 (150-450); Red Blood Count 2.95 M/mm3 (4.1-5.4); Red Cell Distribution Width 13.8 % (11.5-14.0); White Blood Count 8.6 K/mm3 (4.0-10.5)
[2019-05-20 17:24] LABS: ALBUMIN 4.1 g/dL (3.5-5.0); ANION GAP 17.8 MEQ/L (5-15); BILIRUBIN,TOTAL 0.6 mg/dL (0.2-1.3); Calcium 9.9 mg/dL (8.4-10.2); Creatinine 1 2.99 mg/dL (0.52-1.04); Total Protein 7.7 g/dL (6.3-8.2)
[2019-05-20] MEDS ORDERED: TYLENOL 325 MG PO PRN (17:28)
[2019-05-20] MEDS ORDERED: MEDICATION INTERVENTION MC SCH (17:45)
[2019-05-20] MEDS: ANTIVERT 25 MG PO SCH (20:54)
[2019-05-20] MEDS: ZOCOR 20MG PO SCH (20:54)
[2019-05-20] MEDS: ZOLOFT 50 MG TABLET PO SCH (20:54)
[2019-05-20] MEDS ORDERED: [UNRECOGNIZED DRUG - OTHER] PO SCH (22:00)
[2019-05-20] MEDS ORDERED: ROSUVASTATIN CALCIUM PO SCH (22:00)
[2019-05-21] MEDS: Sodium Chloride 0.9% 1000 ML 1,000 ML IV SCH ×2 (03:25→14:30)
[2019-05-21 05:01] LABS: Mean Cell Volume 100.4 fl (78-100); Mean Corpuscular Hemoglobin 32.1 pg (26-32); Mean Platelet Volume 10.4 fl (7.5-11.0); Platelet Count 118 K/mm3 (150-450); Red Blood Count 2.49 M/mm3 (4.1-5.4); Red Cell Distribution Width 13.8 % (11.5-14.0); White Blood Count 5.8 K/mm3 (4.0-10.5)
[2019-05-21 05:07] LABS: ALBUMIN 3.1 g/dL (3.5-5.0); ANION GAP 9.7 MEQ/L (5-15); BILIRUBIN,TOTAL 0.4 mg/dL (0.2-1.3); Calcium 8.5 mg/dL (8.4-10.2); Creatinine 1 2.38 mg/dL (0.52-1.04); Potassium 3.5 mmol/L (3.5-5.1); Total Protein 6.1 g/dL (6.3-8.2)
[2019-05-21 05:09] LABS: Appearance SLIGHTLY CLOUDY (CLEAR); Bacteria FEW /HPF (NEGATIVE); Bilirubin NEGATIVE (NEGATIVE); Blood NEGATIVE Ery/ul (0-5); Epithelial Cells FEW /HPF (FEW); Glucose NEGATIVE (NEGATIVE); Hyaline Casts 0-2 /LPF (0-2); Ketones NEGATIVE (NEGATIVE); Leukocyte Esterase LARGE (NEGATIVE); Mucus SLIGHT /HPF (NEGATIVE); Nitrite NEGATIVE (NEGATIVE); Protein,Urine Dip NEGATIVE (Negative); Specific Gravity 1.015 (1.005-1.025); Urobilinogen NEGATIVE mg/dL (0-1); WBC 51-100 /HPF (0-5)
--- NOTE | 2019-05-21 08:51 | XRAY ---
Indication: Weakness, shaky, and headache. Comparison: September 29, 2018. AP/lateral chest better hyperinflated without focal infiltrate, consolidation, or large effusion. Heart is not enlarged. Descending aorta remains tortuous. Bony thorax again demonstrates osteopenia, degenerative changes, old right 7 rib fracture, scoliosis, and T7/T8 kyphoplasty. Impression: Nonacute hyperinflated chest with chronic features.
--- NOTE | 2019-05-21 08:54 | XRAY ---
Indication: Weakness, shaking, and headache. Falls. Multiple contiguous axial images obtained through the head without contrast. Comparison: September 25, 2018. There is continued age-appropriate global atrophy and minimal periventricular degenerative micro-ischemia bilaterally. No acute intracranial hemorrhage, abnormal extra-axial fluid collection, or mass effect. Fourth ventricle is midline without hydrocephalus. Bony calvarium intact. Stable complete opacification of the right mastoid air cells. Remaining paranasal sinuses and left mastoid air cells are clear. Impression: Stable nonacute senile brain and complete opacification the right mastoid air cells.
[2019-05-21] MEDS: ANTIVERT 25 MG PO SCH ×3 (09:06→21:05)
[2019-05-21] MEDS ORDERED: [UNRECOGNIZED DRUG - OTHER] PO SCH (10:00)
[2019-05-21] MEDS ORDERED: VALSARTAN PO SCH (10:00)
[2019-05-21] MEDS ORDERED: HYDROCHLOROTHIAZIDE PO SCH (10:00)
[2019-05-21] MEDS: NORVASC 5 MG PO SCH (10:02)
[2019-05-21] MEDS: hydroDIURIL 25 MG PO SCH (10:02)
[2019-05-21] MEDS: DIOVAN 80 MG PO SCH (10:02)
[2019-05-21] MEDS: ROCEPHIN 1 Gm-D5w 50 ml Bag** 1 G/50 ML IVPB IV SCH (10:29)
[2019-05-21] MEDS: TYLENOL 325 MG PO PRN (16:49)
--- NOTE | 2019-05-21 19:26 | PCM.HP.ADD ---
Addendum to History & Physical - History & Physical Addendum Addendum to History & Physical: This certifies that the History & Physical in the electronic chart reflects the current health status of the patient. If there are changes in the H&P these changes/exceptions are listed as follows.
--- NOTE | 2019-05-21 19:29 | PCM.NOTE ---
Date and Time: 05/21/191925 Subjective Assessment: very weak and confused. - Review of Systems Constitutional: Fatigue, Lethargy, Weakness, No Fever, No Chills Eyes: No Symptoms Ears, Nose, & Throat: No Symptoms Respiratory: No Cough, No Short Of Breath Cardiac: No Chest Pain, No Edema, No Syncope Abdominal/Gastrointestinal: No Abdominal Pain, No Nausea, No Vomiting, No Diarrhea Genitourinary Symptoms: No Dysuria Musculoskeletal: No Back Pain, No Neck Pain Skin: No Rash Neurological: No Dizziness, No Focal Weakness, No Sensory Changes Psychological: No Symptoms Endocrine: No Symptoms Hematologic/Lymphatic: No Symptoms Immunological/Allergic: No Symptoms Objective Exam General Appearance: mild distress, alert Neurologic Exam: alert, No motor deficits Skin Exam: normal color, warm, dry Eye Exam: PERRL, EOMI, eyes nml inspection Ears, Nose, Throat Exam: normal ENT inspection, pharynx normal, moist mucous membranes Neck Exam: normal inspection, non-tender, supple, full range of motion Respiratory Exam: normal breath sounds, lungs clear, No respiratory distress Cardiovascular Exam: regular rate/rhythm, normal heart sounds Gastrointestinal/Abdomen Exam: soft, No tenderness, No mass Extremity Exam: normal inspection, normal range of motion Back Exam: normal inspection, normal range of motion, No CVA tenderness, No vertebral tenderness Pelvic Exam: deferred Rectal Exam: deferred OBJECTIVE DATA Vital Signs: Vital Signs - 24 hr Temp Pulse Resp BP Pulse Ox 05/21/19 16:00 98.6 F 92 H 18 100/50 97 05/21/19 11:26 99.2 F 77 20 92/51 95 05/21/19 08:29 85 05/21/19 07:40 98.4 F 85 20 98/57 95 05/21/19 04:25 97.9 F 83 17 88/50 95 05/20/19 23:38 98.6 F 92 H 18 85/39 96 05/20/19 19:55 98.6 F 90 18 89/50 95 Pain Assessment - Last Documented Pain Intensity 0 Pain Scale Used [facility] Intake and Output: Intake & Output 05/19/19 05/20/19 05/21/19 05/22/19 11:59 11:59 11:59 11:59 Intake Total 3124 6274 Output Total 350 800 Balance 2772 964 Weight 57.5 kg Lab Results: Lab Results-Last 24 Hours 05/21/19 05/21/19 05/21/19 Range/Units 04:30 04:30 Unknown WBC 5.8 (4.0-10.5) K/mm3 RBC 2.49 L (4.1-5.4) M/mm3 Hgb 8.0 L (12.0-16.0) gm/dl Hct 25.0 L (35-47) % MCV 100.4 H (78-100) fl MCH 32.1 H (26-32) pg MCHC 32.0 (32-36) g/dl RDW 13.8 (11.5-14.0) % Plt Count 118 L (150-450) K/mm3 MPV 10.4 (7.5-11.0) fl Sodium 142 (137-145) mmol/L Potassium 3.5 (3.5-5.1) mmol/L Chloride 111 H (98-107) mmol/L Carbon Dioxide 24 (22-30) mmol/L Anion Gap 9.7 (5-15) MEQ/L BUN 40 H (7-17) mg/dL Creatinine 2.38 H (0.52-1.04) mg/dL Estimated GFR 20.7 ML/MIN Glucose 85 (74-106) mg/dL Calcium 8.5 (8.4-10.2) mg/dL Total Bilirubin 0.40 (0.2-1.3) mg/dL AST 24 (14-36) U/L ALT 9 (0-35) U/L Alkaline Phosphatase 44 (38-126) U/L Serum Total Protein 6.1 L (6.3-8.2) g/dL Albumin 3.1 L (3.5-5.0) g/dL Urine Color YELLOW (YELLOW) Urine Appearance SLIGHTLY CLOUDY (CLEAR) Urine pH 7.0 (5-6) Ur Specific [place] 1.015 (1.005-1.025) Urine Protein NEGATIVE (Negative) Urine Ketones NEGATIVE (NEGATIVE) Urine Blood NEGATIVE (0-5) Ubaldo/ul Urine Nitrite NEGATIVE (NEGATIVE) Urine Bilirubin NEGATIVE (NEGATIVE) Urine Urobilinogen NEGATIVE (0-1) mg/dL Ur Leukocyte Esterase LARGE (NEGATIVE) Urine WBC (Auto) 51-100 (0-5) /HPF Urine RBC (Auto) 6-10 (0-2) /HPF U Hyaline Cast (Auto) 0-2 (0-2) /LPF U Epithel Cells (Auto) FEW (FEW) /HPF Urine Bacteria (Auto) FEW (NEGATIVE) /HPF Urine Mucus (Auto) SLIGHT (NEGATIVE) /HPF Urine Culture Reflexed YES (NO) Urine Glucose NEGATIVE (NEGATIVE) mg/dL Radiology Exams: Radiology Procedures Category Date Time Status CHEST 2 VIEWS (PA AND LAT) Urgent Exams 05/20/19 18:32 Completed HEAD WITHOUT CONTRAST [CT] Urgent Exams 05/20/19 16:46 Completed Multi-Disciplinary Progress Notes: Multi-Disciplinary Progress Notes 05/21/19 13:55 Case Management Note by Arlin Greenfield FAXED TO [facility] - [facility] COPY IN PT'S CHART. Initialized on 05/21/19 13:55 - END OF NOTE 05/21/19 13:52 Case Management Note by Arlin Greenfield LEVEL I COMPLETE, NO LEVEL II REQUIRED. Initialized on 05/21/19 13:52 - END OF NOTE 05/21/19 13:51 Case Management Note by Arlin Greenfield HOLDING BED FOR PT ON DISCHARGE. Initialized on 05/21/19 13:51 - END OF NOTE 05/21/19 10:19 Case Management Note by Florinda Davis ATTEMPTED TO CALL REFERRAL TO LIL[facility] AT [facility]- VOICEMAIL LEFT, FACESHEET FAXED AND CONFIRMATION RECEIVED Initialized on 05/21/19 10:19 - END OF NOTE Assessment/Plan (1) Acute kidney failure, unspecified Current Visit: Yes Status: Acute Qualifiers: Acute renal failure type: with acute renal cortical necrosis Qualified Code (s): N17.1 - Acute kidney failure with acute cortical necrosis Assessment & Plan: Last Vital Signs Temp 98.6 F 05/21/19 16:00 Pulse 92 H 05/21/19 16:00 Resp 18 05/21/19 16:00 BP 100/50 05/21/19 16:00 Pulse Ox 97 05/21/19 16:00 Allergies No Known Drug Allergies Allergy (Verified 01/14/18 09:22) Active Medications Acetaminophen (Tylenol 325 Mg) 650 mg PO Q6H PRN PRN PRN Reason: PAIN, FEVER, HEADACHE Stop: 06/19/19 17:27 Last Admin: 05/21/19 16:49 Dose: 650 mg Amlodipine Besylate (Norvasc 5 Mg) 5 mg PO DAILY [facility] Stop: 06/20/19 09:59 Last Admin: 05/21/19 10:02 Dose: Not Given Hydrochlorothiazide (Hydrodiuril 25 Mg) 12.5 mg PO DAILY [facility] Stop: 06/20/19 09:59 Last Admin: 05/21/19 10:02 Dose: Not Given Sodium Chloride (Sodium Chloride 0.9% 1000 Ml) 1,000 mls @ 100 mls/hr IV .Q10H [facility] Stop: 06/19/19 14:59 Last Admin: 05/21/19 14:30 Dose: 100 mls/hr Ceftriaxone Sodium/Dextrose (Rocephin 1 Gm-D5w 50 Ml Bag) 1 g in 50 mls @ 100 mls/hr IV Q24H10 [facility] Stop: 06/20/19 09:59 Last Admin: 05/21/19 10:29 Dose: 100 mls/hr Meclizine HCl (Antivert 25 Mg) 25 mg PO TID [facility] Stop: 06/19/19 21:59 Last Admin: 05/21/19 14:30 Dose: 25 mg Miscellaneous Information (Medication Intervention) 0 each MC .RN TO CHECK WITH PT [facility] Stop: 06/19/19 17:44 Sertraline HCl (Zoloft 50 Mg Tablet) 25 mg PO [facility] Stop: 06/19/19 21:59 Last Admin: 05/20/19 20:54 Dose: 25 mg Simvastatin (Zocor 20mg) 20 mg PO [facility] Stop: 06/19/19 21:59 Last Admin: 05/20/19 20:54 Dose: 20 mg Valsartan (Diovan 80 Mg) 160 mg PO DAILY [facility] Stop: 06/20/19 09:59 Last Admin: 05/21/19 10:02 Dose: Not Given Intake & Output 05/21/19 05/22/19 11:59 11:59 Intake Total 3122 1764 Output Total 350 800 Balance 2772 964 Orders 05/20/19 22:00 Meclizine HCl 25 mg [Antivert 25 mg] 25 mg PO TID Sertraline HCl 50 mg [Zoloft 50 mg Tablet] 25 mg PO HS Simvastatin 20Mg [Zocor 20Mg] 20 mg PO HS 05/21/19 Discharge Planning,Consult Routine CULTURE,URINE Urgent 05/21/19 08:30 Acetaminophen 325 mg [Tylenol 325 mg] 650 mg PO Q6H PRN PRN 05/21/19 10:00 Amlodipine Besylate 5 mg [Norvasc 5 mg] 5 mg PO DAILY Ceftriaxone 1 GM/50 ML PREMIX* [ROCEPHIN 1 Gm-D5w 50 ml Bag] 1 g in 50 ml IV Q24H10 Hydrochlorothiazide 25 mg [hydroDIURIL 25 MG] 12.5 mg PO DAILY Valsartan 80 mg [Diovan 80 mg] 160 mg PO DAILY 05/22/19 04:00 CBC AM.LAB CMP AM.LAB Lab Tests 05/21/19 05/21/19 05/21/19 04:30 04:30 Unknown WBC 5.8 RBC 2.49 L Hgb 8.0 L Hct 25.0 L MCV 100.4 H MCH 32.1 H MCHC 32.0 RDW 13.8 Plt Count 118 L MPV 10.4 Sodium 142 Potassium 3.5 Chloride 111 H Carbon Dioxide 24 Anion Gap 9.7 BUN 40 H Creatinine 2.38 H Estimated GFR 20.7 Glucose 85 Calcium 8.5 Total Bilirubin 0.40 AST 24 ALT 9 Alkaline Phosphatase 44 Serum Total Protein 6.1 L Albumin 3.1 L Urine Color YELLOW Urine Appearance SLIGHTLY CLOUDY Urine pH 7.0 Ur Specific [place] 1.015 Urine Protein NEGATIVE Urine Ketones NEGATIVE Urine Blood NEGATIVE Urine Nitrite NEGATIVE Urine Bilirubin NEGATIVE Urine Urobilinogen NEGATIVE Ur Leukocyte Esterase LARGE Urine WBC (Auto) 51-100 Urine RBC (Auto) 6-10 U Hyaline Cast (Auto) 0-2 U Epithel Cells (Auto) FEW Urine Bacteria (Auto) FEW Urine Mucus (Auto) SLIGHT Urine Culture Reflexed YES Urine Glucose NEGATIVE (2) UTI (urinary tract infection) Current Visit: Yes Status: Resolved Onset Date: ~12/11/17 Qualifiers: Urinary tract infection type: acute pyelonephritis Code(s): N39.0 - URINARY TRACT INFECTION, SITE NOT SPECIFIED (3) Dehydration Current Visit: Yes Status: Acute Code(s): E86.0 - DEHYDRATION (4) Alzheimer's dementia without behavioral disturbance Current Visit: Yes Status: Acute Code(s): G30.9 - ALZHEIMER'S DISEASE, UNSPECIFIED; F02.80 - DEMENTIA IN OTH DISEASES CLASSD ELSWHR W/O BEHAVRL DISTURB (5) Weakness Current Visit: No Status: Acute Code(s): R53.1 - WEAKNESS
[2019-05-21] MEDS: ZOLOFT 50 MG TABLET PO SCH (21:04)
[2019-05-21] MEDS: ZOCOR 20MG PO SCH (21:05)
[2019-05-21] MEDS: Ativan 2 MG/1 ML VIAL IV PRN (21:06)
[2019-05-22] MEDS: Sodium Chloride 0.9% 1000 ML 1,000 ML IV SCH ×3 (00:37→19:55)
[2019-05-22 06:15] LABS: Hematocrit 26.8 % (35-47); Hemoglobin 8.6 gm/dl (12.0-16.0); Mean Cell Volume 99.3 fl (78-100); Mean Corpuscular Hemoglobin 31.9 pg (26-32); Mean Corpuscular Hgb Concent. 32.1 g/dl (32-36); Mean Platelet Volume 9.9 fl (7.5-11.0); Platelet Count 114 K/mm3 (150-450); White Blood Count 6.4 K/mm3 (4.0-10.5)
[2019-05-22 06:34] LABS: ALBUMIN 3.1 g/dL (3.5-5.0); ANION GAP 9.1 MEQ/L (5-15); BILIRUBIN,TOTAL 0.3 mg/dL (0.2-1.3); Calcium 8.4 mg/dL (8.4-10.2); Creatinine 1 1.68 mg/dL (0.52-1.04); Potassium 3.7 mmol/L (3.5-5.1); Total Protein 6.3 g/dL (6.3-8.2)
--- NOTE | 2019-05-22 07:17 | PCM.NOTE ---
Date and Time: 05/22/19715 Subjective Assessment: doing ok - Review of Systems Constitutional: No Fever, No Chills Eyes: No Symptoms Ears, Nose, & Throat: No Symptoms Respiratory: No Cough, No Short Of Breath Cardiac: No Chest Pain, No Edema, No Syncope Abdominal/Gastrointestinal: No Abdominal Pain, No Nausea, No Vomiting, No Diarrhea Genitourinary Symptoms: No Dysuria Musculoskeletal: No Back Pain, No Neck Pain Skin: No Rash Neurological: No Dizziness, No Focal Weakness, No Sensory Changes Psychological: No Symptoms Endocrine: No Symptoms Hematologic/Lymphatic: No Symptoms Immunological/Allergic: No Symptoms Objective Exam General Appearance: no apparent distress, alert Neurologic Exam: alert, oriented x 3, cooperative, normal mood/affect, nml cerebellar function, sensation nml, No motor deficits Skin Exam: normal color, warm, dry Eye Exam: PERRL, EOMI, eyes nml inspection Ears, Nose, Throat Exam: normal ENT inspection, pharynx normal, moist mucous membranes Neck Exam: normal inspection, non-tender, supple, full range of motion Respiratory Exam: normal breath sounds, lungs clear, No respiratory distress Cardiovascular Exam: regular rate/rhythm, normal heart sounds Gastrointestinal/Abdomen Exam: soft, No tenderness, No mass Extremity Exam: normal inspection, normal range of motion Back Exam: normal inspection, normal range of motion, No CVA tenderness, No vertebral tenderness Pelvic Exam: deferred Rectal Exam: deferred OBJECTIVE DATA Vital Signs: Vital Signs - 24 hr Temp Pulse Resp BP Pulse Ox 05/22/19 04:00 97.6 F 91 H 16 118/57 94 L 05/21/19 23:52 16 05/21/19 20:00 98.1 F 107 H 16 118/59 95 05/21/19 16:00 98.6 F 92 H 18 100/50 97 05/21/19 11:26 99.2 F 77 20 92/51 95 05/21/19 08:29 85 05/21/19 07:40 98.4 F 85 20 98/57 95 Pain Assessment - Last Documented Pain Intensity 0 Pain Scale Used [facility] Intake and Output: Intake & Output 05/19/19 05/20/19 05/21/19 05/22/19 11:59 11:59 11:59 11:59 Intake Total 3122 2204 Output Total 350 1250 Balance 2772 954 Weight 57.5 kg Lab Results: Lab Results-Last 24 Hours 05/22/19 05/22/19 Range/Units 05:25 05:25 WBC 6.4 (4.0-10.5) K/mm3 RBC 2.70 L (4.1-5.4) M/mm3 Hgb 8.6 L (12.0-16.0) gm/dl Hct 26.8 L (35-47) % MCV 99.3 (78-100) fl MCH 31.9 (26-32) pg MCHC 32.1 (32-36) g/dl RDW 14.0 (11.5-14.0) % Plt Count 114 L (150-450) K/mm3 MPV 9.9 (7.5-11.0) fl Sodium 142 (137-145) mmol/L Potassium 3.7 (3.5-5.1) mmol/L Chloride 115 H (98-107) mmol/L Carbon Dioxide 22 (22-30) mmol/L Anion Gap 9.1 (5-15) MEQ/L BUN 24 H (7-17) mg/dL Creatinine 1.68 H (0.52-1.04) mg/dL Estimated GFR 31.0 ML/MIN Glucose 82 (74-106) mg/dL Calcium 8.4 (8.4-10.2) mg/dL Total Bilirubin 0.30 (0.2-1.3) mg/dL AST 26 (14-36) U/L ALT 9 (0-35) U/L Alkaline Phosphatase 43 (38-126) U/L Serum Total Protein 6.3 (6.3-8.2) g/dL Albumin 3.1 L (3.5-5.0) g/dL Radiology Exams: Radiology Procedures Category Date Time Status CHEST 2 VIEWS (PA AND LAT) Urgent Exams 05/20/19 18:32 Completed HEAD WITHOUT CONTRAST [CT] Urgent Exams 05/20/19 16:46 Completed Multi-Disciplinary Progress Notes: Multi-Disciplinary Progress Notes 05/21/19 13:55 Case Management Note by Arlin Greenfield FAXED TO [facility] COPY IN PT'S CHART. Initialized on 05/21/19 13:55 - END OF NOTE 05/21/19 13:52 Case Management Note by Greenfield,Arlin PASRR LEVEL I COMPLETE, NO LEVEL II REQUIRED. Initialized on 05/21/19 13:52 - END OF NOTE 05/21/19 13:51 Case Management Note by Arlin Greenfield HOLDING BED FOR PT ON DISCHARGE. Initialized on 05/21/19 13:51 - END OF NOTE 05/21/19 10:19 Case Management Note by Florinda Davis ATTEMPTED TO CALL REFERRAL TO [facility] AT [facility]- VOICEMAIL LEFT, FACESHEET FAXED AND CONFIRMATION RECEIVED Initialized on 05/21/19 10:19 - END OF NOTE Assessment/Plan (1) Acute kidney failure, unspecified Current Visit: Yes Status: Acute Qualifiers: Acute renal failure type: with acute renal cortical necrosis Qualified Code (s): N17.1 - Acute kidney failure with acute cortical necrosis Assessment & Plan: Chief Complaint Diagnosis ACUTE RENAL FAILURE, DEHYDRATION, Allergies Allergy/AdvReac Type Severity Reaction Status Date / Time No Known Drug Allergies Allergy Verified 01/14/18 09:22 Vital Signs (Last 24 hours) Temp Pulse Resp BP Pulse Ox 05/22/19 04:00 97.6 F 91 H 16 118/57 94 L 05/21/19 23:52 16 05/21/19 20:00 98.1 F 107 H 16 118/59 95 05/21/19 16:00 98.6 F 92 H 18 100/50 97 05/21/19 11:26 99.2 F 77 20 92/51 95 05/21/19 08:29 85 05/21/19 07:40 98.4 F 85 20 98/57 95 Current Medications Generic Name Dose Route Start Last Admin Trade Name Freq PRN Reason Stop Dose Admin Acetaminophen 650 mg 05/21/19 08:30 05/21/19 16:49 Tylenol 325 Mg PO 06/19/19 17:27 650 mg Q6H PRN PRN Administration PAIN, FEVER, HEADACHE Amlodipine Besylate 5 mg 05/21/19 10:00 05/21/19 10:02 Norvasc 5 Mg PO 06/20/19 09:59 Not Given DAILY SREE Hydrochlorothiazide 12.5 mg 05/21/19 10:00 05/21/19 10:02 Hydrodiuril 25 Mg PO 06/20/19 09:59 Not Given DAILY SREE Sodium Chloride 1,000 mls @ 100 mls/hr 05/20/19 15:00 05/22/19 00:37 Sodium Chloride 0.9% 1000 Ml IV 06/19/19 14:59 100 mls/hr .Q10H SREE Administration Ceftriaxone Sodium/Dextrose 1 g in 50 mls @ 100 mls/hr 05/21/19 10:00 10:29 Rocephin 1 Gm-D5w 50 Ml Bag IV 06/20/19 09:59 100 mls/hr Q24H10 SREE Administration Lorazepam 0.5 mg 05/21/19 20:51 05/21/19 21:06 Ativan 2 Mg/1 Ml Vial IV 06/20/19 20:50 0.5 mg Q8H PRN PRN Administration ANXIETY Meclizine HCl 25 mg 05/20/19 22:00 05/21/19 21:05 Antivert 25 Mg PO 06/19/19 21:59 25 mg TID SREE Administration Miscellaneous Information 0 each 05/20/19 17:45 Medication Intervention 06/19/19 17:44 .RN TO CHECK WITH PT SREE Sertraline HCl 25 mg 05/20/19 22:00 05/21/19 21:04 Zoloft 50 Mg Tablet PO 06/19/19 21:59 25 mg HS SREE Administration Simvastatin 20 mg 05/20/19 22:00 05/21/19 21:05 Zocor 20mg PO 06/19/19 21:59 20 mg HS SREE Administration Valsartan 160 mg 05/21/19 10:00 05/21/19 10:02 Diovan 80 Mg PO 06/20/19 09:59 Not Given DAILY SREE Discontinued Medications Generic Name Dose Route Start Last Admin Trade Name Freq PRN Reason Stop Dose Admin Acetaminophen 2 mg 05/20/19 17:28 Tylenol 325 Mg PO 06/19/19 17:27 Q6H PRN PRN PAIN, FEVER, HEADACHE Sodium Chloride 1,000 mls @ 999 mls/hr 05/20/19 14:48 05/20/19 15:19 Sodium Chloride 0.9% 1000 Ml IV 05/20/19 15:48 999 mls/hr .Q1H1M STA Administration Intake & Output (Last 24 hours) 03/07/0405/20/19 05/21/19 05/22/19 11:59 11:59 11:59 11:59 Intake Total 3122 2204 Output Total 350 1250 Balance 2772 954 Weight 57.5 kg Microbiology Results (Last 24 hours) 05/21/19 Unknown Clean Catch Midstream Urine Culture - Pending Laboratory Results (Last 24 hours) 05/22/19 05/22/19 05:25 05:25 WBC 6.4 RBC 2.70 L Hgb 8.6 L Hct 26.8 L MCV 99.3 MCH 31.9 MCHC 32.1 RDW 14.0 Plt Count 114 L MPV 9.9 Sodium 142 Potassium 3.7 Chloride 115 H Carbon Dioxide 22 Anion Gap 9.1 BUN 24 H Creatinine 1.68 H Estimated GFR 31.0 Glucose 82 Calcium 8.4 Total Bilirubin 0.30 AST 26 ALT 9 Alkaline Phosphatase 43 Serum Total Protein 6.3 Albumin 3.1 L Orders (Last 24 hours) Category Date Time Status CBC AM.LAB Lab 05/22/19 05:25 Completed CMP AM.LAB Lab 05/22/19 05:25 Completed Acetaminophen 325 mg [Tylenol 325 mg] Med 05/21/19 08:30 Active 650 mg PO Q6H PRN PRN Amlodipine Besylate 5 mg [Norvasc 5 mg] Med 05/21/19 10:00 Active 5 mg PO DAILY Ceftriaxone 1 GM/50 ML PREMIX* [ROCEPHIN 1 Gm-D5w 50 ml Med 05/21/19 10:00 Active Bag] 1 g in 50 ml IV Q24H10 Hydrochlorothiazide 25 mg [hydroDIURIL 25 MG] Med 05/21/19 10:00 Active 12.5 mg PO DAILY Lorazepam 2 mg/1 ml [Ativan 2 MG/1 ML VIAL] Med 05/21/19 20:51 Active 0.5 mg IV Q8H PRN PRN Valsartan 80 mg [Diovan 80 mg] Med 05/21/19 10:00 Active 160 mg PO DAILY Patient Care Notes (Last 24 hours) 05/21/19 20:54 SBAR Note by Desiree Galdamez I am calling about TSU AU the patient's code status is SCO The problem I am calling about is: patient anxiety Guidelines I am concerned about the: BP because it's over 200 or < 100 or 30 mmHg below usual Pulse because it's >130 or < 40 and the patient is symptomatic Respiration because it's < 8 or > 30 Temperature because it's <96 or >104 Urine output because it's ,25ml/hr or >200ml/8hrs O2 saturation because it's < 88% on Other: patient very anxious r/t confusion. Believes children are home alone. Pt children are grown. Pt is visibly trembling and upset, very restless Vital Signs (Last 4 hours) Temp Pulse Resp BP Pulse Ox 05/21/19 20:00 98.1 F 107 H 16 118/59 95 Diagnois, Code Status Date of Arrival on Unit 05/20/19 Admitted From Direct Admit Diagnosis ACUTE RENAL FAILURE, DEHYDRATION, Resucitation Status SCO Intake and Output 24 Hours 05/21/19 05/22/19 06:59 06:59 Intake Total 2642 2244 Output Total 350 800 Balance 2292 1444 Weight 57.5 kg Intake: Intake, Oral Amount 460 1200 Intake, IV Amount 2182 994 Intake, IVPB: 50 Output: Output, Urine Amount 350 800 Other: Number of Voids 1 Number of Bowel Movements 1 Physical Assessment Anxiety Level None,at ease Mental Status Confused Patient Orientation Person Coma Scale Total 14 Breath Sounds [Anterior/ Clear Posterior Bilateral Throughout ] Bowel Sounds [All Quadrants] Hypoactive Abdomen Description Soft,Non-Tender Urine Appearance Not Assessed,Not Voided Urine Color Yellow Skin Color Normal for Race Skin Temperature Warm Pain Scale (Last 24 Hours) Pain Intensity 0 Pain Intensity 0 PAST MEDICAL HISTORY Neurological History Dementia,Other ENT History Cataracts Endocrine Medical History No Pertinent History Respiratory History No Pertinent History Cardiac History High Cholesterol,Hypertension GI Medical History Gallbladder Disease History Renal Disease Reproductive Disorders No Pertinent History Pyscho-Social History Anxiety,Depression Communicable Disease No Pertinent History Comment OBTAINED FROM OFFICE NOTE Lab Results (Last 24 Hours) 05/21/19 05/21/19 05/21/19 Range/Units Unknown 04:30 04:30 WBC 5.8 (4.0-10.5) K/mm3 RBC 2.49 L (4.1-5.4) M/mm3 Hgb 8.0 L (12.0-16.0) gm/dl Hct 25.0 L (35-47) % MCV 100.4 H (78-100) fl MCH 32.1 H (26-32) pg MCHC 32.0 (32-36) g/dl RDW 13.8 (11.5-14.0) % Plt Count 118 L (150-450) K/mm3 MPV 10.4 (7.5-11.0) fl Sodium 142 (137-145) mmol/L Potassium 3.5 (3.5-5.1) mmol/L Chloride 111 H (98-107) mmol/L Carbon Dioxide 24 (22-30) mmol/L Anion Gap 9.7 (5-15) MEQ/L BUN 40 H (7-17) mg/dL Creatinine 2.38 H (0.52-1.04) mg/dL Estimated GFR 20.7 ML/MIN Glucose 85 (74-106) mg/dL Calcium 8.5 (8.4-10.2) mg/dL Total Bilirubin 0.40 (0.2-1.3) mg/dL AST 24 (14-36) U/L ALT 9 (0-35) U/L Alkaline Phosphatase 44 (38-126) U/L Serum Total Protein 6.1 L (6.3-8.2) g/dL Albumin 3.1 L (3.5-5.0) g/dL Urine Color YELLOW (YELLOW) Urine Appearance SLIGHTLY CLOUDY (CLEAR) Urine pH 7.0 (5-6) Ur Specific Casco 1.015 (1.005-1.025) Urine Protein NEGATIVE (Negative) Urine Ketones NEGATIVE (NEGATIVE) Urine Blood NEGATIVE (0-5) Ubaldo/ul Urine Nitrite NEGATIVE (NEGATIVE) Urine Bilirubin NEGATIVE (NEGATIVE) Urine Urobilinogen NEGATIVE (0-1) mg/dL Ur Leukocyte Esterase LARGE (NEGATIVE) Urine WBC (Auto) 51-100 (0-5) /HPF Urine RBC (Auto) 6-10 (0-2) /HPF U Hyaline Cast (Auto) 0-2 (0-2) /LPF U Epithel Cells (Auto) FEW (FEW) /HPF Urine Bacteria (Auto) FEW (NEGATIVE) /HPF Urine Mucus (Auto) SLIGHT (NEGATIVE) /HPF Urine Culture Reflexed YES (NO) Urine Glucose NEGATIVE (NEGATIVE) mg/dL Microbiology Results (Last 24 Hours) 05/21/19 Unknown Urine Culture - Pending Clean Catch Midstream Orders (Last 24 Hours) Category Date Time Status Discharge Planning,Consult Routine Discharge 05/21/19 Active CBC AM.LAB Lab 05/22/19 04:00 Ordered CMP AM.LAB Lab 05/22/19 04:00 Ordered CULTURE,URINE Urgent Lab 05/21/19 Received Acetaminophen 325 mg [Tylenol 325 mg] Med 05/21/19 08:30 Active 650 mg PO Q6H PRN PRN Amlodipine Besylate 5 mg [Norvasc 5 mg] Med 05/21/19 10:00 Active 5 mg PO DAILY Ceftriaxone 1 GM/50 ML PREMIX* [ROCEPHIN 1 Gm-D5w 50 ml Med 05/21/19 10:00 Active Bag] 1 g in 50 ml IV Q24H10 Hydrochlorothiazide 25 mg [hydroDIURIL 25 MG] Med 05/21/19 10:00 Active 12.5 mg PO DAILY Lorazepam 2 mg/1 ml [Ativan 2 MG/1 ML VIAL] Med 05/21/19 20:51 Ordered 0.5 mg IV Q8H PRN PRN Meclizine HCl 25 mg [Antivert 25 mg] Med 05/20/19 22:00 Active 25 mg PO TID Sertraline HCl 50 mg [Zoloft 50 mg Tablet] Med 05/20/19 22:00 Active 25 mg PO HS Simvastatin 20Mg [Zocor 20Mg] Med 05/20/19 22:00 Active 20 mg PO HS Valsartan 80 mg [Diovan 80 mg] Med 05/21/19 10:00 Active 160 mg PO DAILY Active Visit Medications Generic Name Dose Route Start Last Admin Trade Name Freq PRN Reason Stop Dose Admin Acetaminophen 650 mg 05/21/19 08:30 05/21/19 16:49 Tylenol 325 Mg PO 06/19/19 17:27 650 mg Q6H PRN PRN Administration PAIN, FEVER, HEADACHE Amlodipine Besylate 5 mg 05/21/19 10:00 05/21/19 10:02 Norvasc 5 Mg PO 06/20/19 09:59 Not Given DAILY SREE Hydrochlorothiazide 12.5 mg 05/21/19 10:00 05/21/19 10:02 Hydrodiuril 25 Mg PO 06/20/19 09:59 Not Given DAILY SREE Sodium Chloride 1,000 mls @ 100 mls/hr 05/20/19 15:00 05/21/19 14:30 Sodium Chloride 0.9% 1000 Ml IV 06/19/19 14:59 100 mls/hr .Q10H SREE Administration Ceftriaxone Sodium/Dextrose 1 g in 50 mls @ 100 mls/hr 05/21/19 10:00 10:29 Rocephin 1 Gm-D5w 50 Ml Bag IV 06/20/19 09:59 100 mls/hr Q24H10 SREE Administration Lorazepam 0.5 mg 05/21/19 20:51 Ativan 2 Mg/1 Ml Vial IV 06/20/19 20:50 Q8H PRN PRN ANXIETY Meclizine HCl 25 mg 05/20/19 22:00 05/21/19 14:30 Antivert 25 Mg PO 06/19/19 21:59 25 mg TID SREE Administration Miscellaneous Information 0 each 05/20/19 17:45 Medication Intervention 06/19/19 17:44 .RN TO CHECK WITH PT SREE Sertraline HCl 25 mg 05/20/19 22:00 05/20/19 20:54 Zoloft 50 Mg Tablet PO 06/19/19 21:59 25 mg HS SREE Administration Simvastatin 20 mg 05/20/19 22:00 05/20/19 20:54 Zocor 20mg PO 06/19/19 21:59 20 mg HS SREE Administration Valsartan 160 mg 05/21/19 10:00 05/21/19 10:02 Diovan 80 Mg PO 06/20/19 09:59 Not Given DAILY SREE ASSESSMENT This is what I think the problem is: patient very anxious r/t confusion. Believes children are home alone. Pt children are grown. Pt is visibly trembling and upset. RECOMMENDATION From Physician: Transfer patient to Critical Care Come to see patient at this time Talk to the patient or family about code status Ask a consultant education to see patient now: Would you like any further test: ( CXR, ABG,EKG,CBC,BMP) If a change in treatment is ordered then ask: How often do you want vital signs How long do you expect this problem will last? If the patient does not get better when would you want us to call again? Physician notified at 2053 New Orders received: Ativan 0.5 mg IV Q8H PRN Initialized on 05/21/19 20:54 - END OF NOTE 05/21/19 13:55 Case Management Note by Arlin Greenfield FAXED TO [facility] COPY IN PT'S CHART. Initialized on 05/21/19 13:55 - END OF NOTE 05/21/19 13:52 Case Management Note by Arlin Greenfield LEVEL I COMPLETE, NO LEVEL II REQUIRED. Initialized on 05/21/19 13:52 - END OF NOTE 05/21/19 13:51 Case Management Note by Arlin Greenfield HOLDING BED FOR PT ON DISCHARGE. Initialized on 05/21/19 13:51 - END OF NOTE 05/21/19 10:19 Case Management Note by Florinda Davis ATTEMPTED TO CALL REFERRAL TO [facility] AT [facility]- VOICEMAIL LEFT, FACESHEET FAXED AND CONFIRMATION RECEIVED Initialized on 05/21/19 10:19 - END OF NOTE (2) UTI (urinary tract infection) Current Visit: Yes Status: Resolved Onset Date: ~12/11/17 Qualifiers: Urinary tract infection type: acute pyelonephritis Code(s): N39.0 - URINARY TRACT INFECTION, SITE NOT SPECIFIED (3) Dehydration Current Visit: Yes Status: Acute Code(s): E86.0 - DEHYDRATION (4) Alzheimer's dementia without behavioral disturbance Current Visit: Yes Status: Acute Code(s): G30.9 - ALZHEIMER'S DISEASE, UNSPECIFIED; F02.80 - DEMENTIA IN OTH DISEASES CLASSD ELSWHR W/O BEHAVRL DISTURB (5) Weakness Current Visit: No Status: Acute Code(s): R53.1 - WEAKNESS
[2019-05-22] MEDS: ROCEPHIN 1 Gm-D5w 50 ml Bag** 1 G/50 ML IVPB IV SCH (09:09)
[2019-05-22] MEDS: NORVASC 5 MG PO SCH (09:09)
[2019-05-22] MEDS: hydroDIURIL 25 MG PO SCH (09:10)
[2019-05-22] MEDS: DIOVAN 80 MG PO SCH (09:11)
[2019-05-22] MEDS: ANTIVERT 25 MG PO SCH ×3 (09:11→22:51)
[2019-05-22] MEDS ORDERED: FLUZONE HIGH-DOSE 2019-20 SYR IM ONE (10:00)
[2019-05-22] MEDS: Ativan 2 MG/1 ML VIAL IV PRN (10:37)
[2019-05-22] MEDS ORDERED: Ativan 2 MG/1 ML VIAL IV PRN (17:06)
[2019-05-22] MEDS ORDERED: Ativan 1 MG PO PRN (17:06)
[2019-05-22] MEDS: TYLENOL 325 MG PO PRN (17:44)
[2019-05-22] MEDS: ZOLOFT 50 MG TABLET PO SCH (22:51)
[2019-05-22] MEDS: ZOCOR 20MG PO SCH (22:51)
[2019-05-23] MEDS: Sodium Chloride 0.9% 1000 ML 1,000 ML IV SCH (06:47)
[2019-05-23] MEDS: DIOVAN 80 MG PO SCH (10:42)
[2019-05-23] MEDS: NORVASC 5 MG PO SCH (10:42)
[2019-05-23] MEDS: hydroDIURIL 25 MG PO SCH (10:43)
[2019-05-23] MEDS: ANTIVERT 25 MG PO SCH ×3 (10:43→21:20)
[2019-05-23] MEDS: ROCEPHIN 1 Gm-D5w 50 ml Bag** 1 G/50 ML IVPB IV SCH (10:44)
[2019-05-23] MEDS: TYLENOL 325 MG PO PRN (10:47)
[2019-05-23] MEDS: Sodium Chloride 0.9% 10 ML FLUSH Syringe IV SCH ×2 (15:55→21:23)
[2019-05-23] MEDS: ZOCOR 20MG PO SCH (21:20)
[2019-05-23] MEDS: ZOLOFT 50 MG TABLET PO SCH (21:20)
[2019-05-24 04:55] LABS: Hematocrit 25.5 % (35-47); Hemoglobin 8.3 gm/dl (12.0-16.0); Mean Cell Volume 98.5 fl (78-100); Mean Corpuscular Hgb Concent. 32.5 g/dl (32-36); Mean Platelet Volume 9.7 fl (7.5-11.0); Platelet Count 122 K/mm3 (150-450); Red Blood Count 2.59 M/mm3 (4.1-5.4); Red Cell Distribution Width 14.3 % (11.5-14.0); White Blood Count 5.5 K/mm3 (4.0-10.5)
[2019-05-24 05:16] LABS: ANION GAP 9.6 MEQ/L (5-15); Calcium 8.7 mg/dL (8.4-10.2); Creatinine 1 1.4 mg/dL (0.52-1.04); Potassium 3.6 mmol/L (3.5-5.1)
[2019-05-24] MEDS: Sodium Chloride 0.9% 10 ML FLUSH Syringe IV SCH (05:33)
[2019-05-24 08:00] VITALS: BP 120/58; PULSE 108; O2SAT 97
[2019-05-24] MEDS: ROCEPHIN 1 Gm-D5w 50 ml Bag** 1 G/50 ML IVPB IV SCH (09:31)
[2019-05-24] MEDS: ANTIVERT 25 MG PO SCH (09:36)
[2019-05-24] MEDS: hydroDIURIL 25 MG PO SCH (09:36)
[2019-05-24] MEDS: DIOVAN 80 MG PO SCH (09:37)
[2019-05-24] MEDS: NORVASC 5 MG PO SCH (09:38)
== END 2019-05-24 11:35 | DRG 683 ==
LOC: MED SURG 11:08 → OBSVTOIN 15:00
PROVIDERS: ADMIT General Practice; ATTEND General Practice
DX: N17.9 Acute kidney failure, unspecified (principal); N39.0 Urinary tract infection, site not specified; G30.1 Alzheimer's disease with late onset; F02.80 Dementia in other diseases classified elsewhere, unspecified severity, without behavioral disturbance, psychotic disturbance, mood disturbance, and anxiety; E86.0 Dehydration; I10 Essential (primary) hypertension; R53.1 Weakness; E78.5 Hyperlipidemia, unspecified; F41.9 Anxiety disorder, unspecified; Z79.899 Other long term (current) drug therapy
CPT/HCPCS: 36415; 70450; 71046; 80048; 80053; 81001; 85027; 87077; 87086; 87186; G0378; 90662; J0696; J2060; A9270-GY

== ENCOUNTER 2023-01-24 09:35 | Emergency (ER) | payer MEDICARE ==
[2023-01-24 09:47] VITALS: RESP 20; TEMP 97.3
[2023-01-24 10:38] VITALS: O2SAT 98
--- NOTE | 2023-01-24 10:45 | XRAY ---
Indication: Status post fall. Multiple contiguous axial images obtained through the head without contrast. Comparison: May 20, 2019 Again age-appropriate global atrophy, minimal periventricular degenerative micro-ischemia bilaterally, and remote lacunar infarct left basal ganglia. No acute intracranial hemorrhage, abnormal extra-axial fluid collection, or mass effect. Fourth ventricle is midline without hydrocephalus. Bony calvarium intact. There remains near complete opacification of the right mastoid air cells. Remaining paranasal sinuses and left mastoid air cells are clear. Impression: Continued nonacute senile brain with remote lacunar infarct left basal ganglia. Stable opacification right mastoid air cells presumed inflammatory.
--- NOTE | 2023-01-24 10:50 | XRAY ---
Indication: Status post fall. Multiple contiguous axial images obtained through the cervical spine. Sagittal and coronal reformatted images obtained. Comparison: None Osseous structures demineralized. Axial images negative for acute fracture, suspicious bony lesions, or spinal canal stenosis. Minimal/mild C3-C6 degenerative endplate spurring and moderate multilevel bilateral degenerative facet hypertrophy. Sagittal and coronal reformatted images demonstrates 1-2 mm anterolisthesis C4 on C5 on C6 on C7. No acute compression fracture or jumped facet. Normal appearing craniocervical junction. Visualized noncontrasted soft tissues demonstrates mild bilateral carotid calcifications. CT head and CT chest report separately. Impression: Negative acute fracture. Chronic findings including osteopenia, multilevel degenerative spondylosis, and minimal spondylolisthesis C4-C7, and bilateral carotid calcifications.
--- NOTE | 2023-01-24 10:58 | XRAY ---
Indication: Status post fall. Multiple contiguous axial images obtained through the chest without contrast. Comparison: None Heart is enlarged with scattered coronary calcifications. Aorta moderately arteriosclerotic without aneurysm. No pathologic mediastinal lymphadenopathy. Large hiatal hernia with partial intrathoracic stomach. Lungs demonstrates mild diffuse pulmonary edema, tiny bilateral effusions, and dependent atelectasis. Right middle lobe demonstrates 1.8 x 3.5 x 2.2 cm irregular noncalcified mass. No pneumothorax. Bony thorax demonstrates osteopenia, mild/moderate multilevel degenerative spondylosis, remote appearing T4/T6/T7/T8/T9 fractures with approximately 25-50% height loss. Also T7/T8 vertebroplasty. CT abdomen/pelvis reported separately. Impression: 1. Cardiomegaly with pulmonary edema and tiny bilateral effusions favoring cardiac decompensation/CHF versus fluid overload. Superimposed pneumonia not completely excluded. 2. Right middle lobe mass worrisome for malignancy. PET CT may yield further information. 3. Large hiatal hernia with partial intrathoracic stomach. 4. Chronic bony findings.
--- NOTE | 2023-01-24 11:03 | XRAY ---
Indication: Status post fall. Multiple contiguous axial images obtained through the abdomen and pelvis without contrast. Comparison: None CT chest report separately. Noncontrasted stomach and bowel loops appear nonobstructed. Right hemicolon demonstrate scattered colonic fecal debris. Sigmoid and lesser degree descending colonic diverticulosis without diverticulitis. Inferior right lobe liver demonstrate 1.1 cm round peripheral hypodense lesion possibly cyst versus hemangioma. Metastasis not completely excluded given right lung mass. Previous cholecystectomy. Left mid kidney demonstrates 6 mm exophytic slightly dense mass. No free fluid/air. Remaining liver, pancreas, spleen, adrenal glands, kidneys, ureters, bladder, and uterus are unremarkable for noncontrast exam. Moderate scattered aortoiliac calcifications without AAA. Osseous structures intact with osteopenia, mild/moderate degenerative changes throughout the visualized spine, moderate dextrorotoscoliosis centered at L2, and mild degenerative changes both hips. Impression: 1. Small right hepatic hypodense lesion, cyst versus hemangioma. Solitary metastasis not completely excluded given right lung mass. 2. Small left mid renal exophytic mass. Rule out complex viscus cyst versus solid renal mass. 3. Chronic findings including colonic diverticulosis, arteriosclerotic disease, and chronic bony findings.
--- NOTE | 2023-01-24 11:04 | ERPHSYRPT ---
- History of Present Illness Source: patient, EMS Exam Limitations: other (Poor historian due to advanced dementia) Patient Subjective Stated Complaint: EMS stated "She fell twice, once last night and once this morning, unwittnessed falls. The senior care had her up and walking after both of them but now she is complaining of neck and back pain. We put a c collar on her. The senior care gave her tramadol at 9 am this morning." Triage Nursing Assessment: Pt presented alert and confused, pt has dementia she is in her normal mentation. PT able to speak in clear full sentences. Pt has c collar in place. 20 g iv in pt left ac. PT lays calmly but will yell and scream when she is moved. pt has dried blood on her mouth, no other obvious extermal injuries noted, any time pt is moved she screams, difficult to assess any other injuries. Physician History: Patient is an 87-year-old demented white female from senior care who has fallen twice in the last 24 hours. Falls were not witnessed at the senior care. It is unknown if there was any LOC associated with the falls. Patient is a DNR who states that she hurts all over. half-way states that she complained of head and neck pain. Patient arrived in c-collar without a spine board. Patient alert and oriented x1 only. Occurred: other (Twice over the last 24 hours) Reason for Fall: unknown (Is unknown why the patient fell.) Injuries/Pain Location: head, neck Loss of Consciousness: other (Also consciousness is unknown) Quality: other (Patient unable to describe her pain or give a pain level this time) Modifying Factors: Improves With: movement (Pain worse with movement) Associated Symptoms (Fall): denies symptoms Allergies/Adverse Reactions: No Known Drug Allergies Allergy (Verified 01/14/18 09:22) Home Medications: Acetaminophen 325 mg [Tylenol 325 mg] 2 tab PO Q6H PRN PRN 01/14/18 [History] Meclizine HCl 25 mg [Antivert 25 mg] 12.5 tab PO TID 01/14/18 [History] Sertraline HCl 200 mg PO HS 09/25/18 [History] Furosemide [Lasix] 20 mg PO DAILY 01/24/23 [History] Metoprolol Succinate 50 mg [Toprol Xl 50 MG] 50 mg PO DAILY 01/24/23 [History] Potassium Chloride 10 meq PO DAILY 01/24/23 [History] Tramadol HCl 50 mg [Ultram 50 mg] 50 mg PO QID 01/24/23 [History] Hx Tetanus, Diphtheria Vaccination/Date Given: Yes Hx Influenza Vaccination/Date Given: Yes Hx Pneumococcal Vaccination/Date Given: Yes Immunizations Up to Date: Yes Travel Risk - International Travel Have you traveled outside of the country in past 3 weeks: No - Coronavirus Screening Are you exhibiting any of the following symptoms?: No Close contact with a COVID-19 positive Pt in past 14-21 Days: No - Vaccine Status Have you recieved a Covid-19 vaccination: No - Review of Systems All Other Systems: Unable due to dementia - Past Medical History Pertinent Past Medical History: Yes Neurological History: Dementia, Other ENT History: Cataracts Cardiac History: High Cholesterol, Hypertension Respiratory History: No Pertinent History Endocrine Medical History: No Pertinent History Musculoskeletal History: Arthritis GI Medical History: Gallbladder Disease History: Renal Disease Psycho-Social History: Anxiety, Depression Female Reproductive Disorders: No Pertinent History Other Medical History: OBTAINED FROM OFFICE NOTE - Past Surgical History Past Surgical History: Yes Neuro Surgical History: No Pertinent History Cardiac: No Pertinent History Respiratory: No Pertinent History Gastrointestinal: Cholecystectomy Genitourinary: No Pertinent History Musculoskeletal: Other Female Surgical History: No Pertinent History Other Surgical History: BACK SURGERY, OBTAINED FROM OFFICE NOTE - Social History Smoking Status: Never smoker Exposure to second hand smoke: Yes Drug Use: none Patient Lives Alone: No - Nursing Vital Signs Nursing Vital Signs: Initial Vital Signs Temperature 97.3 F 01/24/23 09:38 Pulse Rate 72 01/24/23 09:38 Respiratory Rate 20 01/24/23 09:38 Blood Pressure 136/68 01/24/23 09:38 O2 Sat by Pulse Oximetry 93 L 01/24/23 09:38 Pain Scale Pain Intensity 0 Within normal limits for patient - [place] Coma Score Best Eye Response ([place]): (4) open spontaneously Best Verbal Response ([place]): (5) oriented Best Motor Response ([place]): (6) obeys commands [place] Total: 15 - Physical Exam General Appearance: no apparent distress (Patient in no apparent distress but does complain of pain upon movement) Head Injury: no evidence of injury (No obvious hematomas or deformities of her head/patient has a mild contusion of her upper lip/facial bones nontender to palpation.) Eye Exam: PERRL/EOMI, eyes nml inspection ENT Exam: other (No otorrhea or rhinorrhea noted) Neck Exam: other (C-spine with mild to moderate tenderness to palpation with c- collar in place) Respiratory/Chest Exam: other (Thorax nontender to palpation/mild rales at bases bilaterally.) Cardiovascular Exam: other (Regular rate and rhythm heaves gallops murmurs or rubs) Gastrointestinal Exam: soft (Good bowel sounds, soft, nontender to palpation,) Back Exam: other (T-spine with mild to moderate tenderness palpation/L spine nontender to palpate) Extremity Exam: other (Left shoulder with mild tenderness palpation/right knee with mild tenderness palpation/small ecchymotic area left knee/all distal pulses, sensation, and capillary return normal in all 4 extremities) Neurologic Exam: alert, other (Patient oriented to name only) Skin Exam: normal color, warm, dry SpO2 Interpretation: normal SpO2: 98 O2 Delivery: Room Air - Course Nursing assessment & vital signs reviewed: Yes - Radiology Exams Knee X-ray Interpretation: Reviewed by me (Right knee negative per Dr. Bernabe) Shoulder X-ray Interpretation: Reviewed by me (Left shoulder negative per Dr. Oliveira) - CT Exams Head CT Interpretation: Discussed w/radiologist (No acute disease with remote lacunar infarct left basal ganglia per Dr. Bernabe.) Cervical Spine CT Interpretation: Discussed w/radiologist (No acute fracture cervical spine/chronic findings including osteopenia multilevel degenerative spondylosis and minimal spondylolisthesis C4 C7 and bilateral carotid calcifications per Dr. Bernabe) Chest CT Interpretation: Discussed w/radiologist (CT of the chest without contrast demonstrates cardiomegaly with pulmonary edema and tiny bilateral effusions/right middle lobe mass per Dr. Bernabe.) Abdomen/Pelvis CT Interpretation: Discussed w/radiologist (CT abdomen pelvis without contrast demonstrates large hiatal hernia with partial intrathoracic stomach, chronic bony findings.) Ordered Tests: Active Orders 24 hr Category Date Time Status ABDOMEN AND PELVIS W/0 CONTRAS [CT] Stat Exams 01/24/23 10:00 Completed CERVICAL SPINE WO CONTRAST [CT] Stat Exams 01/24/23 10:00 Completed CHEST WITHOUT CONTRAST [CT] Stat Exams 01/24/23 10:01 Completed HEAD WITHOUT CONTRAST [CT] Stat Exams 01/24/23 10:01 Completed KNEE (3 VIEWS) Stat Exams 01/24/23 10:02 Completed SHOULDER Stat Exams 01/24/23 10:01 Completed Medication Summary Discontinued Medications Generic Name Dose Route Start Last Admin Trade Name Martha PRN Reason Stop Dose Admin Fentanyl Citrate 12.5 mcg 01/24/23 11:07 01/24/23 11:19 Fentanyl Citrate 100 Mcg/2 Ml* Vial IV 01/24/23 11:08 12.5 mcg STAT ONE Administration Fentanyl Citrate Confirm 01/24/23 11:18 Fentanyl Citrate 100 Mcg/2 Ml* Vial Administered 01/24/23 11:19 Dose 100 mcg .ROUTE .STK-MED ONE Ondansetron HCl 4 mg 01/24/23 11:08 01/24/23 11:19 Ondansetron Hcl 4 Mg/2 Ml Vial IV 01/24/23 11:09 4 mg STAT ONE Administration Ondansetron HCl Confirm 01/24/23 11:16 Ondansetron Hcl 4 Mg/2 Ml Vial Administered 01/24/23 11:17 Dose 4 mg .ROUTE .STK-MED ONE - Progress Progress Note: 01/24/23 11:56 Nursing note and vital signs reviewed. No food or housing insecurities noted. Patient is a DNR. All x-ray results reviewed. All CT results reviewed. Patient given 12.5 of IV fentanyl and 4 mg IV Zofran with improvement in pain. Patient does has a possible mass right middle lobe per CT which is to be followed up by her senior care physician. Patient also does have some mild CHF which is also to be followed up by her senior care physician. Patient in no apparent distress with good oxygen saturation during majority of visit. Patient did have a mild dip in her oxygen saturation after fentanyl was given, but oxygen saturation improved very quickly. Patient sent back to senior care with good sats on no oxygen. Patient most likely has a mild closed head injury and also cervical strain. Multiple CAT scans demonstrated no acute osseous injuries. Left shoulder x-ray and right knee x-ray demonstrated no acute fractures. See home notes reviewed. Counseled pt/family regarding: lab results, diagnosis, need for follow-up, rad results Medical Desision Making - Independent Historian Additional History obtained from: Skilled Nursing nurse - External Record(s) Reviewed Records reviewed as a part of evaluation & management: half-way, EMS - Diagnostic Testing Radiological Interpretation: Reviewed by me - Risk of complications The pt has a mod risk of morbidity or mortality based on: Need for prescription drug management - Departure Departure Disposition: Extended Care Facility Clinical Impression: Minor closed head injury, Cervical strain, Lung mass, Congestive heart failure Condition: Stable Critical Care Time: No Referrals: [facility] [Primary Care Provider] - Follow up/PCP as directed Instructions: Heart Failure, Heart Failure, Adult (DC), Head Injury in Adults (DC), Preventing falls in adults, Cervical Muscle Strain (DC) Additional Instructions: Please have patient's senior care physician see and evaluate patient and to devise a treatment plan for right middle lobe mass and possibly increasing her Lasix for her chronic congestive heart failure appears to be worsening. Please consult patient's primary care physician for further pain management. Patient's CAT scan of her head, cervical spine, chest, and abdomen pelvis are negative for acute traumatic injury. X-ray of left shoulder and right knee are also negative for acute traumatic injury. Would recommend ice to the contused areas for 12 to 24 hours. Return to the ER as needed.
--- NOTE | 2023-01-24 11:06 | XRAY ---
Indication: Status post fall. Comparison: None 3 view left shoulder obtained on cart demonstrates osteopenia and T7/T8 vertebroplasty. No other bony, articular, or soft tissue abnormalities.
--- NOTE | 2023-01-24 11:06 | XRAY ---
Indication: Status post fall. Comparison: None 3 view right knee obtained on cart demonstrates osteopenia, minimal/mild tricompartmental degenerative changes greatest medial compartment, and heavy scattered vascular calcifications. No other bony, articular, or soft tissue abnormalities.
[2023-01-24] MEDS ORDERED: SUBLIMAZE 100 MCG/2 ML IV ONE (11:07)
[2023-01-24] MEDS ORDERED: Zofran 4 MG/2 ML VIAL IV ONE (11:08)
[2023-01-24] MEDS ORDERED: Zofran 4 MG/2 ML VIAL ONE (11:16)
[2023-01-24] MEDS ORDERED: SUBLIMAZE 100 MCG/2 ML ONE (11:18)
[2023-01-24 11:59] VITALS: BP 125/65; PULSE 72
== END 2023-01-24 12:02 | disposition home or self-care (01) ==
LOC: ED 09:35
DX: S09.90XA Unspecified injury of head, initial encounter (principal); S16.1XXA Strain of muscle, fascia and tendon at neck level, initial encounter; W19.XXXA Unspecified fall, initial encounter; Y92.129 Unspecified place in nursing home as the place of occurrence of the external cause; R91.8 Other nonspecific abnormal finding of lung field; I11.0 Hypertensive heart disease with heart failure; I50.9 Heart failure, unspecified; R51.9 Headache, unspecified; E78.5 Hyperlipidemia, unspecified; Z79.899 Other long term (current) drug therapy; Z28.310 Unvaccinated for COVID-19
CPT/HCPCS: 36000; 70450; 71250; 72125; 73030; 73562; 74176; 96374; 96375; 99284; J2405; J3010